=== PATIENT | female | born 1960 | race Caucasian/White ===

== ENCOUNTER 2018-05-26 09:03 | Emergency (ER) | payer SELFPAY ==
[2018-05-26] MEDS ORDERED: NA CHLORIDE 0.9% 1,000 ML ONE (10:00)
[2018-05-26] MEDS ORDERED: METHYLPREDNISOLONE 125 MG INJ ONE (10:00)
[2018-05-26] MEDS ORDERED: LEVALBUTEROL 1.25 MG/3 ML NEB ONE (10:00)
[2018-05-26 10:08] LABS: Absolute Lymphocytes (CBC) 2.4 K/uL (0.7-4.9); Absolute Monocytes 1.1 K/uL (0.1-1.3); Absolute Neutrophil 9.2 K/uL (1.8-8.0); Basophils % 0.5 % (0-1.3); Eosinophils % 0.2 % (0-4.4); Hematocrit 46.9 % (36.0-45.0); Lymphocytes % 18.9 % (15.3-44.8); MPV 8.5 fL (7.6-11.3); Monocytes % 8.3 % (3.3-12.3); RBC Red Blood Cell Count 5.12 M/uL (3.86-4.86)
--- NOTE | 2018-05-26 10:21 | RAD REPORT ---
EXAM DESCRIPTION: RAD - Chest Single View - 05/26/2018 9:56 am CLINICAL HISTORY: Cough;Dyspnea Chest pain. COMPARISON: No comparisons FINDINGS: Portable technique limits examination quality. The lungs are emphysematous but grossly clear. The heart is normal in size. No displaced fractures. IMPRESSION: No acute intrathoracic process suspected. Mild COPD.
[2018-05-26 10:37] LABS: BUN Blood Urea Nitrogen 12 mg/dL (7-18); Bicarbonate 25 mmol/L (21-32); Glucose Level 123 mg/dL (74-106); Potassium 3.3 mmol/L (3.5-5.1); Sodium Level 138 mmol/L (136-145); Troponin (Emerg Dept Use Only) < 0.02 ng/mL (0.0-0.045)
[2018-05-26] MEDS ORDERED: POTASSIUM CL SA 10 MEQ TAB PO ONE (10:54)
[2018-05-26] MEDS ORDERED: ACETAMINOPHEN 500 MG TAB ONE (10:54)
[2018-05-26] MEDS ORDERED: MEPERIDINE HCL 25 MG/0.5 ML ONE (11:44)
[2018-05-26 12:02] LABS: Urine Amorphous Sediment TRACE /HPF (NONE SEEN); Urine Bacteria 20-50 /HPF (<20); Urine Culture Reflex Order REFLEXED; Urine Mucus 4+ /HPF (NONE SEEN)
[2018-05-26 12:06] LABS: Urine Blood 2+ (NEG); Urine Glucose NEGATIVE (NEG); Urine Protein 1+ (NEG); Urine pH 5.5 (5.0-7.0)
--- NOTE | 2018-05-26 12:06 | RAD REPORT ---
EXAM DESCRIPTION: CT - Chest For Pe Angio - 05/26/2018 11:35 am CLINICAL HISTORY: Chest pain. CHEST PAIN COMPARISON: No comparisons TECHNIQUE: CT angiogram of the pulmonary arteries was performed with MIP. All CT scans are performed using dose optimization technique as appropriate and may include automated exposure control or mA/KV adjustment according to patient size. FINDINGS: No evidence of pulmonary thromboembolism. No acute aortic finding demonstrated. The lungs appear mildly emphysematous with areas of ground-glass opacity present bilaterally. This li don represents areas of alveolitis. No focal consolidation typical of bacterial pneumonia is seen. No significant pericardial or pleural fluid. Mild soft tissue is seen in the mediastinum and both hil ar regions compatible with mild adenopathy, likely reactive. No concerning bony finding. IMPRESSION: No evidence of pulmonary thromboembolism. Areas of ground-glass opacity in both lungs likely represents alveolitis. Mildly reactive lymphadenopathy suspected in the mediastinum and hilar regions.
--- NOTE | 2018-05-26 12:54 | ER ---
Nurse's Notes [facility] Name: Joelle Nielsen Age: 57 yrs Sex: Female : 1960 Arrival Date: 05/26/2018 Time: 09:07 Bed 5 Private MD: Diagnosis: Alveolitis;Pneumonia Presentation: 05/26 09:29 Presenting complaint: Patient states: SOB, productive cough with greenish/yellowish aa5 sputum x 3 days ago. Pt also reports N/V/D x 2-3 days ago. Transition of care: patient was not received from another setting of care. Onset of symptoms was May 2018. Risk Assessment: Do you want to hurt yourself or someone else? Patient reports no desire to harm self or others. Care prior to arrival: None. 09:29 Method Of Arrival: Ambulatory aa5 09:29 Acuity: YOAV 2 aa5 09:29 Initial Sepsis Screen: Does the patient meet any 2 criteria? HR > 90 bpm. Does the aa5 patient have a suspected source of infection? Yes: Productive cough/pneumonia. Triage Assessment: 11:00 General: Appears in no apparent distress. Behavior is calm, cooperative. Pain: iw Complains of pain in chest. Respiratory: Reports shortness of breath on exertion Onset: The symptoms/episode began/occurred yesterday, the patient has moderate shortness of breath. 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 - Social history:: Smoking status: Patient uses tobacco products, Pt states "I quit smoking a little over a week" . - Ebola Screening: : No symptoms or risks identified at this time. - Family history:: not pertinent. - Hospitalizations: : No recent hospitalization is reported. Screenin:28 Abuse screen: Denies threats or abuse. Denies injuries from another. Nutritional iw screening: No deficits noted. Tuberculosis screening: No symptoms or risk factors identified. Fall Risk IV access (20 points). Assessment: 10:27 Reassessment: Patient appears in no apparent distress at this time. Patient and/or iw family updated on plan of care and expected duration. Pain level reassessed. Patient is alert, oriented x 3, equal unlabored respirations, skin warm/dry/pink. pt c/o headache after breathing treatment. 10:30 Cardiovascular: Rhythm is sinus tachycardia. iw 11:23 Reassessment: Patient appears in no apparent distress at this time. Patient and/or iw family updated on plan of care and expected duration. Pain level reassessed. pt still tachycardiac at 115 bpm, still complain of diffuse chest pain throughout, increases with inspiration, mild SOB noted, mildly tachypneic at 22 breaths per minute. 12:58 Cardiovascular: No deficits noted. Respiratory: Airway is patent Respiratory effort is iw even, unlabored, Breath sounds are clear bilaterally. Vital Signs: 09:31 BP 156 / 98; Pulse 122; Resp 20; Temp 100.4(O); Pulse Ox 96% on R/A; Weight 47.63 kg aa5 (R); Height 5 ft. 1 in. (154.94 cm) (R); Pain 10/10; 10:23 BP 136 / 79; Pulse 100; Resp 20; Temp 98.4; Pulse Ox 100% on R/A; iw 11:10 BP 135 / 61; Pulse 112; Resp 22 S; Pulse Ox 100% on R/A; iw 12:56 BP 133 / 78; Pulse 96; Resp 20 S; Pulse Ox 100% on R/A; Pain 4/10; iw 09:31 Body Mass Index 19.84 (47.63 kg, 154.94 cm) aa5 ED Course: 09:07 Patient arrived in ED. as 09:25 Arm band placed on. aa5 09:30 Triage completed. aa5 09:33 Olvin Painting MD is Attending Physician. rn 09:33 Naomi Jhaveri, BRENNA is Primary Nurse. iw 09:45 Initial lab(s) drawn, by in, sent to lab. Inserted saline lock: 20 gauge in right iw antecubital area, using aseptic technique. Blood collected. 09:54 Chest Single View XRAY In Process Unspecified. EDMS 10:21 Patient has correct armband on for positive identification. iw 11:27 CT completed. Patient tolerated procedure well. Patient moved to CT via stretcher. sj Patient moved back from CT. 11:36 CT Chest For PE Angio In Process Unspecified. EDMS 12:23 EKG done, by desktop technician. reviewed by Olvin Painting MD. 3 13:16 No provider procedures requiring assistance completed. IV discontinued, intact, iw bleeding controlled, No redness/swelling at site. Pressure dressing applied. Administered Medications: 10:01 Drug: NS 0.9% 1000 ml Route: IV; Rate: 1000 ml; Site: right antecubital; iw 10:01 Drug: Xopenex (3) 1.25 mg Route: Inhalation; iw 10:01 Drug: SOLU-Medrol 125 mg Route: IVP; Site: right antecubital; iw 11:16 Follow up: Response: No adverse reaction iw 10:49 Drug: Tylenol 500 mg Route: PO; sg 13:15 Follow up: Response: No adverse reaction iw 10:49 Drug: Potassium Chloride 40 mEq Route: PO; sg 12:00 Follow up: Response: No adverse reaction iw 11:45 Drug: Demerol 25 mg Route: IVP; Site: right antecubital; iw 13:14 Follow up: Response: No adverse reaction; Pain is decreased iw 13:14 Drug: LevaQUIN 500 mg Route: PO; iw Outcome: 12:53 Discharge ordered by . rn 13:17 Discharged to home via wheelchair. iw 13:17 Condition: good 13:17 Discharge instructions given to patient, Instructed on discharge instructions, follow up and referral plans. medication usage, Demonstrated understanding of instructions, follow-up care, medications, Prescriptions given X 3. 13:23 Patient left the ED. iw Signatures: Dispatcher [employer] EDMS Kota Velez RN RN sg Jones, Susan sj Martinez, Amelia as Williams, Irene, RN RN iw Olivn Painting MD MD rn Calderon, Audri, RN RN aa5 Sheeba Godinez 3 Corrections: (The following items were deleted from the chart) 09:32 09:29 Acuity: YOAV 3 aa5 aa5 10:26 10:23 BP 136 / 79; Pulse 100bpm; Resp 20bpm; Pulse Ox 100% RA; iw iw
--- NOTE | 2018-05-26 12:54 | EDPHYS ---
Physician Documentation [facility] Name: Joelle Nielsen Age: 57 yrs Sex: Female : 1960 Arrival Date: 05/26/2018 Time: 09:07 Bed 5 Private MD: ED Physician Olvin Painting HPI: 05/26 10:44 This 57 yrs old Female presents to ER via Ambulatory with complaints of rn Shortness Of Breath, Cough, Headache. 10:44 The patient has shortness of breath at rest. rn 10:44 Onset: The symptoms/episode began/occurred 3 day(s) ago. Duration: The symptoms are rn intermittent. The patient's shortness of breath is aggravated by nothing. Severity of symptoms: At their worst the symptoms were mild in the emergency department the symptoms are unchanged. The patient has not experienced similar symptoms in the past. The patient has not recently seen a physician. Reports 3-4 days of cough, congestion, post-tussive emesis, generalized weakness and poor PO intake, + decades of smoking, quit last week. . 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 - Social history:: Smoking status: Patient uses tobacco products, Pt states "I quit smoking a little over a week" . - Ebola Screening: : No symptoms or risks identified at this time. - Family history:: not pertinent. - Hospitalizations: : No recent hospitalization is reported. ROS: 10:44 Constitutional: Negative for fever, chills, and weight loss, Eyes: Negative for injury, rn pain, redness, and discharge, ENT: Negative for injury, pain, and discharge, Neck: Negative for injury, pain, and swelling, Cardiovascular: Negative for chest pain, palpitations, and edema, Respiratory: + cough and sob Abdomen/GI: Negative for abdominal pain, constipation, MS/Extremity: Negative for injury and deformity, Skin: Negative for injury, rash, and discoloration, Neuro: Negative for headache, numbness, tingling, and seizure. Exam: 10:44 Constitutional: This is a well developed, well nourished patient who is awake, alert, rn and in no acute distress. Head/Face: Normocephalic, atraumatic. Eyes: Pupils equal round and reactive to light, extra-ocular motions intact. Lids and lashes normal. Conjunctiva and sclera are non-icteric and not injected. Cornea within normal limits. Periorbital areas with no swelling, redness, or edema. ENT: dry MM, no stridor Cardiovascular: Regular rate and rhythm with a normal S1 and S2. No gallops, murmurs, or rubs. Normal PMI, no JVD. No pulse deficits. Respiratory: + mild tachypnea with faint bilateral exp wheezing, no retractions Abdomen/GI: soft, non-tender MS/ Extremity: Pulses equal, no cyanosis. Neurovascular intact. Full, normal range of motion. Equal circumference. Neuro: Awake and alert, GCS 15, oriented to person, place, time, and situation. Cranial nerves II-XII grossly intact. Motor strength 5/5 in all extremities. Sensory grossly intact. Cerebellar exam normal. Normal gait. Vital Signs: 09:31 BP 156 / 98; Pulse 122; Resp 20; Temp 100.4(O); Pulse Ox 96% on R/A; Weight 47.63 kg aa5 (R); Height 5 ft. 1 in. (154.94 cm) (R); Pain 10/10; 10:23 BP 136 / 79; Pulse 100; Resp 20; Temp 98.4; Pulse Ox 100% on R/A; iw 11:10 BP 135 / 61; Pulse 112; Resp 22 S; Pulse Ox 100% on R/A; iw 12:56 BP 133 / 78; Pulse 96; Resp 20 S; Pulse Ox 100% on R/A; Pain 4/10; iw 09:31 Body Mass Index 19.84 (47.63 kg, 154.94 cm) aa5 MDM: 09:33 Patient medically screened. rn 12:52 Differential diagnosis: Bronchitis Chronic Obstructive Pulmonary Disease Myocardial rn Infarction pneumonia, Pneumothorax pulmonary edema, Pulmonary Embolism. Data reviewed: vital signs, nurses notes, lab test result(s), EKG, radiologic studies, CT scan, plain films, and as a result, I will discharge patient. Counseling: I had a detailed discussion with the patient and/or guardian regarding: the historical points, exam findings, and any diagnostic results supporting the discharge/admit diagnosis, lab results, radiology results, the need for outpatient follow up, to return to the emergency department if symptoms worsen or persist or if there are any questions or concerns that arise at home. Response to treatment: the patient's symptoms have markedly improved after treatment. Special discussion: I discussed with the patient/guardian in detail that at this point there is no indication for admission to the hospital. It is understood, however, that if the symptoms persist or worsen the patient needs to return immediately for re-evaluation. 05/26 09:38 Order name: Basic Metabolic Panel rn 05/26 09:38 Order name: Blood Culture Adult (2) rn 05/26 09:38 Order name: CBC with Diff; Complete Time: 10:26 rn 05/26 09:38 Order name: Procalcitonin; Complete Time: 11:17 rn 05/26 09:38 Order name: Troponin (emerg Dept Use Only); Complete Time: 10:43 rn 05/26 09:38 Order name: Urine Microscopic Only; Complete Time: 12:21 rn 05/26 09:38 Order name: Chest Single View XRAY; Complete Time: 10:26 rn 05/26 09:38 Order name: Flu; Complete Time: 10:43 rn 05/26 09:38 Order name: Strep; Complete Time: 10:26 rn 05/26 09:38 Order name: Basic Metabolic Panel; Complete Time: 10:43 [facility] 05/26 10:25 Order name: Throat Culture [facility] 05/26 11:05 Order name: Urine Dipstick--Ancillary (enter results); Complete Time: 12:21 05/26 11:17 Order name: CT Chest For PE Angio; Complete Time: 12:21 rn 05/26 12:04 Order name: Urine Culture [facility] 05/26 09:38 Order name: Accucheck; Complete Time: 11:11 rn 05/26 09:38 Order name: Cardiac monitoring; Complete Time: 10:02 rn 05/26 09:38 Order name: EKG - Nurse/Tech; Complete Time: 11:13 rn 05/26 09:38 Order name: IV Saline Lock - Large Bore; Complete Time: 10:22 rn 05/26 09:38 Order name: Labs collected and sent; Complete Time: 10:22 rn 05/26 09:38 Order name: O2 Per Protocol; Complete Time: 10:22 rn 05/26 09:38 Order name: O2 Sat Monitoring; Complete Time: 10:22 rn 05/26 09:38 Order name: Urine Dipstick-Ancillary (obtain specimen); Complete Time: 11:12 rn Administered Medications: 10:01 Drug: NS 0.9% 1000 ml Route: IV; Rate: 1000 ml; Site: right antecubital; iw 10:01 Drug: Xopenex (3) 1.25 mg Route: Inhalation; iw 10:01 Drug: SOLU-Medrol 125 mg Route: IVP; Site: right antecubital; iw 11:16 Follow up: Response: No adverse reaction iw 10:49 Drug: Tylenol 500 mg Route: PO; sg 13:15 Follow up: Response: No adverse reaction iw 10:49 Drug: Potassium Chloride 40 mEq Route: PO; sg 12:00 Follow up: Response: No adverse reaction iw 11:45 Drug: Demerol 25 mg Route: IVP; Site: right antecubital; iw 13:14 Follow up: Response: No adverse reaction; Pain is decreased iw 13:14 Drug: LevaQUIN 500 mg Route: PO; iw Disposition: 05/26/18 12:53 Discharged to Home. Impression: Alveolitis, Pneumonia. - Condition is Stable. - Discharge Instructions: Community-Acquired Pneumonia, Adult, Pneumonitis. - Prescriptions for Levaquin 500 mg Oral Tablet - take 1 tablet by ORAL route once daily for 7 days; 7 tablet. Prednisone 20 mg Oral Tablet - take 3 tablet by ORAL route once daily for 5 days; 15 tablet. Albuterol Sulfate 90 mcg/actuation - inhale 1-2 puff by INHALATION route every 4-6 hours; 1 Inhaler. - Medication Reconciliation Form, Thank You Letter, Antibiotic Education, Prescription Opioid Use form. - Follow up: Private Physician; When: As needed; Reason: Recheck today's complaints, Re-evaluation by your physician. - Problem is new. - Symptoms have improved. Signatures: Dispatcher [employer] EDMS Kota Velez RN BRENNA sg Naomi Jhaveri RN RN iw Olvin Painting MD MD rn Calderon, Audri RN RN aa5 Corrections: (The following items were deleted from the chart) 13:23 12:53 05/26/2018 12:53 Discharged to Home. Impression: Alveolitis; Pneumonia. Condition iw is Stable. Forms are Medication Reconciliation Form, Thank You Letter, Antibiotic Education, Prescription Opioid Use. Follow up: Private Physician; When: As needed; Reason: Recheck today's complaints, Re-evaluation by your physician. Problem is new. Symptoms have improved. rn
[2018-05-26] MEDS ORDERED: levoFLOXacin 500 MG TAB ONE (13:17)
--- NOTE | 2018-05-26 16:03 | EKG ---
Test Date: 2018-05-26 Test Time: 11:14:09 Nutritionist Public Health: SARAH MEASUREMENT RESULTS: Intervals: Rate: 99 MT: 144 QRSD: 70 QT: 354 QTc: 454 [place]: P: 79 MT: 144 QRS: 53 T: 63 INTERPRETIVE STATEMENTS: Normal sinus rhythm Normal ECG No previous ECG available for comparison Electronically Signed On 05-26-18 16:02:55 MATCH MAKER by Fan Veliz
== END 2018-05-26 13:23 | disposition home or self-care (01) ==
LOC: ER 09:03
DX: J18.9 Pneumonia, unspecified organism (principal); Z72.0 Tobacco use
CPT/HCPCS: 36415; 71045; 71275; 80048; 81003; 81015; 84145; 84484; 85025; 87040; 87070; 87081; 87086; 87088; 87804; 93005; 96374; 96375; 99285; J2175; J2930; J7030; Q9967

== ENCOUNTER 2018-12-11 11:09 | Emergency (ER) | payer OTHER, SELFPAY ==
[2018-12-11] MEDS ORDERED: DIAZEPAM 5 MG TABLET ONE (12:04)
[2018-12-11] MEDS ORDERED: MECLIZINE HCL 12.5 MG TAB ONE (12:04)
[2018-12-11 12:12] LABS: Protime INR 1.04
[2018-12-11 12:15] LABS: Absolute Lymphocytes (CBC) 3.5 K/uL (0.7-4.9); Basophils % 0.7 % (0-1.3); Hematocrit 36.2 % (36.0-45.0); Lymphocytes % 47.8 % (15.3-44.8); MPV 8.4 fL (7.6-11.3); RBC Red Blood Cell Count 3.91 M/uL (3.86-4.86)
[2018-12-11 12:33] LABS: Blood Morphology Comment NOT SEEN (NOT SEEN); Platelet Estimate ADEQ
[2018-12-11 12:36] LABS: BUN Blood Urea Nitrogen 16 mg/dL (7-18); Bicarbonate 29 mmol/L (21-32); Glucose Level 89 mg/dL (74-106); Potassium 3.6 mmol/L (3.5-5.1); Sodium Level 142 mmol/L (136-145)
--- NOTE | 2018-12-11 12:44 | RAD REPORT ---
EXAM DESCRIPTION: CT - Head Brain Wo Cont - 12/11/2018 12:22 pm CLINICAL HISTORY: Dizziness COMPARISON: None TECHNIQUE: Computed axial tomography of the head was obtained. IV contrast was not requested. All CT scans are performed using dose optimization technique as appropriate and may include automated exposure control or mA/KV adjustment according to patient size. FINDINGS: 2 millimeter area of increased density left basal ganglia. The ventricles are normal in caliber. No extra-axial fluid collection is noted. Fluid within the sinuses/ mastoids is not seen. IMPRESSION: A 2 millimeter area of increased density within the left basal ganglia most likely repre senting early calcification. A bleed can have this appearance but is considered less likely. If clini shyanne indicated further evaluation with MRI may be helpful The exam was discussed with Vance in the Emergency Room 12:40 p.m. December 11, 2018
--- NOTE | 2018-12-11 14:55 | RAD REPORT ---
EXAM DESCRIPTION: MRI - Brain Wo Cont - 12/11/2018 2:36 pm CLINICAL HISTORY: Dizziness, syncope, stroke-like symptoms, abnormal CT head examination COMPARISON: CT head December 11 TECHNIQUE: Sagittal T1-weighted images were obtained along with axial PD, heavily T2-weighted and T2 -FLAIR images. Axial DWI and ADC mapping sequences were also obtained along with coronal heavily T2-w eighted images. FINDINGS: No intracranial hemorrhage is present. No mass effect, edema or shift of midline structure s. No acute infarction changes are identifiable. The areas of hyperdensity seen on the CT study in th e left basal ganglia do not have a correlate on the MR examination and are believed to be areas of ea rly but benign basal ganglia calcification. A few small punctate areas of T2 hyperintensity noted mos t likely chronic ischemic change. Vasculitis or migraine headache etiologies are possible if there is a matching clinical history. MS or other demyelinating process not suspected. No extra-axial fluid c ollections. Vazquez-matter/white matter junction is preserved. Signal voids are seen as a normal finding in the major intracranial vessels. Ventricles are normal. No measurable atrophy. No globe or orbital content abnormality. No sella or supra sella abnormality. Mastoid air cells and paranasal sinuses are clear. IMPRESSION: No infarction or other acute intracranial finding. No intracranial hemorrhage suspected. The areas of hyperintensity seen in the left basal ganglia on the CT study believed to be areas of de veloping benign basal ganglia calcification. Scattered T2 hyperintensities in the cerebral white matter believed to be chronic ischemic change. Th is is a minimal finding. Migraine headache or vasculitis etiologies are possible if there supporting history.
--- NOTE | 2018-12-11 15:16 | EDPHYS ---
Physician Documentation [facility] Name: Joelle Nielsen Age: 58 yrs Sex: Female : 1960 Arrival Date: 12/11/2018 Time: 11:12 Bed 14 Private MD: ED Physician Liam Rosen HPI: 12/11 11:40 This 58 yrs old Female presents to ER via Ambulatory with complaints of kdr Dizziness. 11:40 The patient presents with dizziness, feeling off balance, sense of spinning, vertigo. kdr Onset: The symptoms/episode began/occurred acutely, suddenly, just prior to arrival, this morning, When she awoke this morning and reached to the side table, she noted she was dizzy. Context: occurred at home, occurred while the patient was asleep, at rest, just prior to the episode the patient experienced no apparent symptoms. Modifying factors: The symptoms are alleviated by holding head still, the symptoms are aggravated by movement of head, standing up, changing position. Associated signs and symptoms: Pertinent positives: headache, nausea, Pertinent negatives: abdominal pain, agitation, blurred vision, chest pain, combativeness, confusion, diaphoresis, focal weakness, head injury, near-syncope, numbness, palpitations, , seizure, shortness of breath, syncope, tingling. Historical: - Allergies: 11:14 Codeine; hj - PMHx: 11:14 None; hj - PSHx: 11:14 right shoulder with screws; hj - Immunization history:: Adult Immunizations up to date. - Social history:: Smoking status: Patient/guardian denies using tobacco. - Ebola Screening: : Patient negative for fever greater than or equal to 101.5 degrees Fahrenheit, and additional compatible Ebola Virus Disease symptoms Patient denies exposure to infectious person Patient denies travel to an Ebola-affected area in the 21 days before illness onset No symptoms or risks identified at this time. ROS: 11:40 Constitutional: Negative for fever, chills, and weight loss, Eyes: Negative for injury, kdr pain, redness, and discharge, Neck: Negative for injury, pain, and swelling, Cardiovascular: Negative for chest pain, palpitations, and edema, Respiratory: Negative for shortness of breath, cough, wheezing, and pleuritic chest pain, Abdomen/GI: Negative for abdominal pain, nausea, vomiting, diarrhea, and constipation, Back: Negative for injury and pain, : Negative for injury, bleeding, discharge, and swelling, MS/Extremity: Negative for injury and deformity, Skin: Negative for injury, rash, and discoloration, Psych: Negative for depression, anxiety, suicide ideation, homicidal ideation, and hallucinations, Allergy/Immunology: Negative for hives, rash, and allergies, Endocrine: Negative for neck swelling, polydipsia, polyuria, polyphagia, and marked weight changes, Hematologic/Lymphatic: Negative for swollen nodes, abnormal bleeding, and unusual bruising. 11:40 Neuro: Positive for dizziness, Negative for altered mental status, gait disturbance, headache, hearing loss, loss of consciousness, numbness, seizure activity, speech changes, syncope, near syncope, tingling, tinnitus, tremor, visual changes, weakness. Exam: 11:40 Constitutional: This is a well developed, well nourished patient who is awake, alert, kdr and in no acute distress. Head/Face: Normocephalic, atraumatic. Eyes: Pupils equal round and reactive to light, extra-ocular motions intact. Lids and lashes normal. Conjunctiva and sclera are non-icteric and not injected. Cornea within normal limits. Periorbital areas with no swelling, redness, or edema. Neck: Trachea midline, no thyromegaly or masses palpated, and no cervical lymphadenopathy. Supple, full range of motion without nuchal rigidity, or vertebral point tenderness. No Meningismus. Chest/axilla: Normal chest wall appearance and motion. Nontender with no deformity. No lesions are appreciated. Cardiovascular: Regular rate and rhythm with a normal S1 and S2. No gallops, murmurs, or rubs. Normal PMI, no JVD. No pulse deficits. Respiratory: Lungs have equal breath sounds bilaterally, clear to auscultation and percussion. No rales, rhonchi or wheezes noted. No increased work of breathing, no retractions or nasal flaring. Abdomen/GI: Soft, non-tender, with normal bowel sounds. No distension or tympany. No guarding or rebound. No evidence of tenderness throughout. Back: No spinal tenderness. No costovertebral tenderness. Full range of motion. Skin: Warm, dry with normal turgor. Normal color with no rashes, no lesions, and no evidence of cellulitis. MS/ Extremity: Pulses equal, no cyanosis. Neurovascular intact. Full, normal range of motion. Neuro: Awake and alert, GCS 15, oriented to person, place, time, and situation. Cranial nerves II-XII grossly intact. Motor strength 5/5 in all extremities. Sensory grossly intact. Cerebellar exam normal. Normal gait. Psych: Awake, alert, with orientation to person, place and time. Behavior, mood, and affect are within normal limits. Vital Signs: 11:15 BP 145 / 83; Pulse 71; Resp 18; Temp 98.4(TE); Pulse Ox 98% on R/A; Weight 52.16 kg; hj Height 5 ft. 1 in. (154.94 cm); Pain 0/10; 12:48 BP 131 / 81; Pulse 67; Resp 17; Pulse Ox 97% on R/A; aj 14:02 BP 120 / 76; Pulse 82; Resp 17; Pulse Ox 100% on R/A; aj 14:47 BP 139 / 85; Pulse 74; Resp 16; Pulse Ox 100% on R/A; aj 15:03 BP 141 / 76; Pulse 70; Resp 18; Pulse Ox 99% on R/A; aj 11:15 Body Mass Index 21.73 (52.16 kg, 154.94 cm) hj MDM: 11:40 Data reviewed: vital signs, nurses notes, lab test result(s), radiologic studies. kdr Counseling: I had a detailed discussion with the patient and/or guardian regarding: the historical points, exam findings, and any diagnostic results supporting the discharge/admit diagnosis, lab results, radiology results. 15:15 Patient medically screened. [facility] 12/11 11:40 Order name: CBC with Diff; Complete Time: 13:07 [facility] 12/11 11:40 Order name: Chem 7; Complete Time: 13: [facility] 12/11 11:40 Order name: PT-INR; Complete Time: 13:07 [facility] 12/11 11:40 Order name: CT Head Brain wo Cont; Complete Time: 13:07 [facility] 12/11 12:35 Order name: Manual Differential; Complete Time: 13:07 [facility] 12/11 13:08 Order name: MRI - Brain Wo Cont; Complete Time: 15:06 kdr Administered Medications: 11:49 Drug: Valium 5 mg Route: PO; aj 14:47 Follow up: Response: Marked relief of symptoms aj 11:49 Drug: Meclizine 25 mg Route: PO; aj 14:47 Follow up: Response: Marked relief of symptoms aj Disposition: 12/11/18 15:15 Discharged to Home. Impression: Dizziness and giddiness, Vertigo of central origin, unspecified ear. - Condition is Stable. - Discharge Instructions: Vertigo, Mgdd-dz-Sled, Dizziness, Mrwl-wr-Answ. - Prescriptions for Meclizine 25 mg Oral Tablet - take 1 tablet by ORAL route every 8 hours As needed; 30 tablet. - Work release form, Medication Reconciliation Form, Thank You Letter form. - Follow up: Private Physician; When: 2 - 3 days; Reason: If symptoms return, Further diagnostic work-up, Recheck today's complaints, Continuance of care, Re-evaluation by your physician. Follow up: Marco A Reveles MD; When: 2 - 3 days; Reason: If symptoms return, Further diagnostic work-up, Recheck today's complaints, Continuance of care, Re-evaluation by your physician. - Problem is new. - Symptoms have improved. Signatures: Dispatcher [employer] EDMS Miranda Briceño RN RN Liam Allison MD MD [facility] Myron Padgett RN RN Corrections: (The following items were deleted from the chart) 15:25 15:15 12/11/2018 15:15 Discharged to Home. Impression: Dizziness and giddiness; Vertigo aj of central origin, unspecified ear. Condition is Stable. Forms are Medication Reconciliation Form, Thank You Letter, Antibiotic Education, Prescription Opioid Use. Follow up: Private Physician; When: 2 - 3 days; Reason: If symptoms return, Further diagnostic work-up, Recheck today's complaints, Continuance of care, Re-evaluation by your physician. Follow up: Marco A Reveles; When: 2 - 3 days; Reason: If symptoms return, Further diagnostic work-up, Recheck today's complaints, Continuance of care, Re-evaluation by your physician. Problem is new. Symptoms have improved. kdr
--- NOTE | 2018-12-11 15:16 | ER ---
Nurse's Notes [facility] Name: Joelle Nielsen Age: 58 yrs Sex: Female : 1960 Arrival Date: 12/11/2018 Time: 11:12 Bed 14 Private MD: Diagnosis: Dizziness and giddiness;Vertigo of central origin, unspecified ear Presentation: 12/11 11:13 Presenting complaint: Patient states: i have been dizzy since i woke up, feels like the room is spinning; denies headache, denies N/V;. Transition of care: patient was not received from another setting of care. Onset of symptoms was December 11, 2018. Risk Assessment: Do you want to hurt yourself or someone else? Patient reports no desire to harm self or others. Initial Sepsis Screen: Does the patient meet any 2 criteria? No. Patient's initial sepsis screen is negative. Does the patient have a suspected source of infection? No. Patient's initial sepsis screen is negative. Care prior to arrival: None. 11:13 Method Of Arrival: Ambulatory 11:13 Acuity: YOAV 3 Triage Assessment: 11:15 General: Appears. Historical: - Allergies: 11:14 Codeine; - PMHx: 11:14 None; - PSHx: 11:14 right shoulder with screws; - Immunization history:: Adult Immunizations up to date. - Social history:: Smoking status: Patient/guardian denies using tobacco. - Ebola Screening: : Patient negative for fever greater than or equal to 101.5 degrees Fahrenheit, and additional compatible Ebola Virus Disease symptoms Patient denies exposure to infectious person Patient denies travel to an Ebola-affected area in the 21 days before illness onset No symptoms or risks identified at this time. Screenin:49 Abuse screen: Denies threats or abuse. Denies injuries from another. Nutritional aj screening: No deficits noted. Tuberculosis screening: No symptoms or risk factors identified. Fall Risk None identified. Assessment: 11:49 General: Appears in no apparent distress. comfortable, Behavior is calm, cooperative, aj appropriate for age. Pain: Denies pain. Neuro: Level of Consciousness is awake, alert, obeys commands, Oriented to person, place, time, situation, Appropriate for age Stuffed Casing Tier are equal bilaterally Moves all extremities. Full function Gait is steady, Speech is normal, Facial symmetry appears normal, Pupils are PERRLA, Reports dizziness. Respiratory: Airway is patent Respiratory effort is even, unlabored, Respiratory pattern is regular, symmetrical. Derm: Skin is intact, is healthy with good turgor, Skin is pink, warm \T\ dry. normal. 14:47 Reassessment: Patient appears in no apparent distress at this time. No changes from previously documented assessment. Patient and/or family updated on plan of care and expected duration. Pain level reassessed. Patient is alert, oriented x 3, equal unlabored respirations, skin warm/dry/pink. Patient denies pain at this time. Patient states feeling better. Patient states symptoms have improved. Vital Signs: 11:15 BP 145 / 83; Pulse 71; Resp 18; Temp 98.4(TE); Pulse Ox 98% on R/A; Weight 52.16 kg; hj Height 5 ft. 1 in. (154.94 cm); Pain 0/10; 12:48 BP 131 / 81; Pulse 67; Resp 17; Pulse Ox 97% on R/A; aj 14:02 BP 120 / 76; Pulse 82; Resp 17; Pulse Ox 100% on R/A; aj 14:47 BP 139 / 85; Pulse 74; Resp 16; Pulse Ox 100% on R/A; aj 15:03 BP 141 / 76; Pulse 70; Resp 18; Pulse Ox 99% on R/A; aj 11:15 Body Mass Index 21.73 (52.16 kg, 154.94 cm) ED Course: 11:12 Patient arrived in ED. as 11:14 Triage completed. hj 11:15 Arm band placed on right wrist. hj 11:25 Liam Rosen MD is Attending Physician. kdr 11:42 Miranda Briceño, RN is Primary Nurse. aj 11:49 Patient has correct armband on for positive identification. Bed in low position. Call light in reach. Side rails up X 1. Adult w/ patient. 11:52 Initial lab(s) drawn, by in, sent to lab. Inserted saline lock: 20 gauge in right dh3 antecubital area, using aseptic technique. Blood collected. 12:24 CT Head Brain wo Cont In Process Unspecified. EDMS 14:38 MRI - Brain Wo Cont In Process Unspecified. EDMS 15:14 Marco A Reveles MD is Referral Physician. kdr 15:24 No provider procedures requiring assistance completed. IV discontinued, intact, aj bleeding controlled, No redness/swelling at site. Pressure dressing applied. Administered Medications: 11:49 Drug: Valium 5 mg Route: PO; aj 14:47 Follow up: Response: Marked relief of symptoms aj 11:49 Drug: Meclizine 25 mg Route: PO; aj 14:47 Follow up: Response: Marked relief of symptoms aj Outcome: 15:15 Discharge ordered by . kdr 15:24 Discharged to home ambulatory. aj 15:24 Condition: good 15:24 Discharge instructions given to patient, Instructed on discharge instructions, follow up and referral plans. Demonstrated understanding of instructions, follow-up care, medications, Prescriptions given X 1. 15:25 Patient left the ED. aj Signatures: Dispatcher [employer] EDMiranda Marquez, RN RN Liam Allison MD MD kdr Martinez, Amelia as Joaquin, Henry, RN RN Ivonne Penn [facility] Corrections: (The following items were deleted from the chart) 11:16 11:15 Pulse 71bpm; Resp 18bpm; Pulse Ox 98% RA; Temp 98.4F Temporal; 52.16 kg; Height 5 hj ft. 1 in.; BMI: 21.7; Pain 0/10; hj
== END 2018-12-11 15:25 | disposition home or self-care (01) ==
LOC: ER 11:09
DX: H81.49 Vertigo of central origin, unspecified ear (principal); Z88.5 Allergy status to narcotic agent
CPT/HCPCS: 36415; 70450; 70551; 80048; 85025; 85610; 99284

== ENCOUNTER 2019-03-16 07:09 | Day surgery (SDC) | payer OTHER ==
[2019-03-16] MEDS ORDERED: Ringers Lactate 1,000 ML IV ONE (07:39)
[2019-03-16] MEDS ORDERED: LIDOCAINE 1% MPF 5 ML VIAL ONE (08:23)
[2019-03-16] MEDS ORDERED: PROPOFOL 200 MG/20 ML VIAL IV ONE (08:23)
--- NOTE | 2019-03-16 08:48 | ENDO RPT ---
[address], [address] COLONOSCOPY PROCEDURE REPORT EXAM DATE: 03/16/2019 PATIENT NAME: Joelle Nielsen MR #: [id number] BIRTHDATE: 1960 ATTENDING: Myron Falk MD STATUS: outpatient PROFESSOR OF SPECIAL EDUCATION: Cathy Sanchez and Ronit Deras RN INDICATIONS: The patient is a 58 yr old Female here for a colonoscopy due to colon cancer screening PROCEDURE PERFORMED: Colonoscopy MEDICATIONS: Per Anesthesia. ESTIMATED BLOOD LOSS: None CONSENT: The patient understands the risks and benefits of the procedure and understands that these risks include, but are not limited to: sedation, allergic reaction, infection, perforation and/or bleeding. Alternative means of evaluation and treatment include, among others: physical exam, x-rays, and/or surgical intervention. The patient elects to proceed with this endoscopic procedure. DESCRIPTION OF PROCEDURE: During intra-op preparation period all mechanical medical equipment was checked for proper function. Hand hygiene and appropriate measures for infection prevention was taken. Procedure, possible complications, alternatives including, but not limited to possibility of bleeding, perforation, tear, infection, sepsis, need for surgery, need for blood transfusion, were explained to the patient. After the risks, benefits and alternatives of the procedure were thoroughly explained, Informed consent was verified, confirmed and timeout was successfully executed by the treatment team. The patient was placed in the left lateral position. A digital rectal exam was performed and revealed external hemorrhoids. After appropriate level of anesthesia, the scope was passed. The EC-[id number] ([id number]) endoscope was introduced through the anus and advanced to the cecum, which was identified by transillumination from the light source, the appendix, and the ileocecal valve. The quality of the prep was good. The instrument was then slowly withdrawn as the colon was fully examined. Scope withdrawal time was . COLON FINDINGS: Internal and external hemorrhoids were found. Retroflexed views revealed no abnormalities. The scope was then completely withdrawn from the patient and the procedure terminated. ADVERSE EVENTS: There were no complications. IMPRESSIONS: Internal and external hemorrhoids RECOMMENDATIONS: 1. follow-up: office 1 week(s) 2. fiber rich diet 3. hemorrhoidal hygiene RECALL: Return in 5-10 year(s) for Colonoscopy. Myron Falk MD eSigned: Myron Falk MD 03/16/2019 8:48 AM cc: David Ji MD CPT CODES: ICD9 CODES:
[2019-03-16 09:10] VITALS: BP 115/71; TEMP 97.1; O2SAT 95
== END 2019-03-16 09:27 | disposition home or self-care (01) ==
LOC: OR 07:09
PROVIDERS: ATTEND Surgery
PROC: 0DJD8ZZ Inspection of Lower Intestinal Tract, Via Natural or Artificial Opening Endoscopic (ICD-10-PCS; principal; 2019-03-16 08:30)
DX: Z12.11 Encounter for screening for malignant neoplasm of colon (principal); K64.8 Other hemorrhoids; K64.4 Residual hemorrhoidal skin tags; F17.200 Nicotine dependence, unspecified, uncomplicated; Z88.6 Allergy status to analgesic agent; Z82.49 Family history of ischemic heart disease and other diseases of the circulatory system; Z83.3 Family history of diabetes mellitus
CPT/HCPCS: 45378; J2704; J7120

== ENCOUNTER 2020-05-05 17:14 | Emergency (ER) | payer OTHER ==
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
--- OUTSIDE RECORDS SUMMARY | 2020-05-05 17:18 | XMS REPORT | Continuity of Care Document ---
:1960 Author Organization [facility] t Address [address] [place] [address] Care Team Providers Name Role Phone Unavailable Unavailable Unavailable Problems This patient has no known problems. Allergies, Adverse Reactions, Alerts Allergy Allergy Status Severity Reaction(s) Onset Inactive Treating Comm ents Source Name Type Date Date Clinician codeine Adverse Active Info Not [facility] Medications Ordered Filled Start Stop Current Ordering Indication Dosage Frequency Signature Comments Components Source Medication Medication Date Date Medication? Clinician (SIG) Name Name Barrett Hyde 2020-0 2020- No David [address] [facility]14 [facility] Aspir-Low Aspir-Low Yes David [address] [facility] Vitamin B12 Vitamin B12 Yes David not [facility] defined [facility] ProAir HFA ProAir HFA Yes David [address] [facility] needed [facility] Wellbutrin Wellbutrin Yes David [address] [facility] SR SR Ji [facility] Vitamin D3 Vitamin D3 Yes David not [facility] Ji defined [facility] Immunizations Ordered Filled Immunization Date Status Comments Sourc e Immunization Name Name TDAP > 7 TDAP > 7 2019-02-[address] [facility] 00:00:00 [facility] Procedures This patient has no known procedures. Encounters Start End Encounter Admission Attending Care Care Encounter Source Date/Time Date/Time Type Type Clinicians Facility Department ID 2020-05-02 2020-05-02 Outpatient [facility] [id number] [facility] 2020-05-02 2020-05-02 Out[facility] [id number] [facility] 2020-04-05 2020-04-05 Outpatient [facility] [id number] [facility] 2020-04-04 2020-04-04 Outpatient [facility] [id number] [facility] 2020-03-01 2020-03-01 Outpatient [facility] [id number] [facility] 2020-02-25 2020-02-25 Outpatient [facility] [id number] [facility] 2019-11-30 2019-11-30 [facility] [id number] 15:15:00 15:15:00 [employer] [facility] Medicine l Medicine Outpati ent Clinics 2019-10-23 2019-10-23 [facility] [id number] 09:00:00 09:00:00 t [employer] [facility] Family Medicine l Medicine Outpati ent Clinics 2019-10-22 2019-10-22 [facility] [id number] 10:20:00 10:20:00 [facility] [employer] [facility] Family Medicine l Medicine Outpati ent Clinics 2019-09-28 2019-09-28 [facility] [id number] 15:00:00 15:00:00 t [employer] [facility] Medicine l Medicine Outpati ent Clinics 2019-08-24 2019-08-24 [facility] [id number] 11:31:00 11:31:00 t [employer] s - Drive [facility] Family Medicine l Medicine Outpati ent Clinics 2019-07-29 2019-07-29 [facility] [id number] 15:00:00 15:00:00 t [employer] s - Drive [facility] Medicine l Medicine Outpati ent Clinics 2019-07-20 2019-07-20 [facility] [id number] 11:00:00 11:00:00 t [employer] s - Drive [facility] Family Medicine l Medicine Outpati ent Clinics 2019-07-08 2019-07-08 [facility] [id number] 13:41:00 13:41:00 t [employer] s - Drive [facility] Medicine l Medicine Outpati ent Clinics 2019-07-03 2019-07-03 [facility] [id number] 14:33:00 14:33:00 t [employer] s - Drive [facility] Medicine l Medicine Outpati ent Clinics 2019-06-30 2019-06-30 [facility] [id number] 11[facility]00:00 11:00:00 t [employer] s - [employer] [facility] Medicine l Medicine Outpati ent Clinics 2019-06-02 2019-06-02 [facility] [id number] 08:31:00 08:31:00 t [employer] s - [employer] [facility] Medicine l Medicine Outpati ent Clinics 2019-05-21 2019-05-21 [facility] [id number] 17:11:00 17:11:00 t [employer] s - Drive [facility] Medicine l Medicine Outpati ent Clinics 2019-05-12 2019-05-12 [facility] [id number] 08:01:00 08:01:00 t [employer] s - Drive [facility] Medicine l Medicine Outpati ent Clinics 2019-04-29 2019-04-29 [facility] [id number] 08:15:00 08:15:00 t [employer] [address] [facility] Medicine Outpati ent Clinics 2019-04-24 2019-04-24 [facility] [id number] 08:21:00 08:21:00 t [employer] [facility] Medicine Outpati ent Clinics 2019-04-09 2019-04-09 [facility] [id number] 16:00:00 16:00:00 t [employer] [facility] Medicine Outpati ent Clinics 2019-03-17 2019-03-17 [facility] [id number] 15:00:00 15:00:00 t [employer] [facility] Medicine Outpati ent Clinics 2019-03-10 2019-03-10 [facility] [id number] 08:02:00 08:02:00 t [employer] [facility] Medicine Outpati ent Clinics 2019-02-17 2019-02-17 [facility] [id number] 13:30:00 13:30:00 t [employer] [facility] Medicine Outpati ent Clinics Results This patient has no known results.
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
--- OUTSIDE RECORDS SUMMARY | 2020-05-05 17:18 | XMS REPORT ---
:1960 Author Organization [facility] Address [address], [address] [place] [address] Care Team Providers Name Role Phone Garrison Unavailable [phone] PROBLEMS Type Condition ICD9-CM [id number] Onset Condition SNOMED Code Notes Code Code Dates Status Problem Tobacco use F17.200 Active 119833678 disorder Problem Atherosclerosis of I25.10 Active [id number] [place] coronary artery of red cliff heart, angina presence unspecified Problem Pulmonary J43.9 Active 59187014 emphysema, unspecified emphysema type Problem GERD without K21.9 Active 138660506 esophagitis Problem Primary insomnia F51.01 Active 4023210 Problem Atherosclerotic I70.90 Active 06440496 vascular disease Problem Mixed E78.2 Active 710289085 hyperlipidemia Problem Abnormal mammogram R92.8 Active 156316777 Problem Osteoporosis M81.0 Active 03609843 without current pathological fracture, unspecified osteoporosis type ALLERGIES Allergen (clinical drug Drug/Non Drug Allergy Reaction Allergy Type Onset Date Status ingredient) documented on EMR codeine codeine Unknown Drug Allergy Active ENCOUNTERS from 1960 to 2020-04-05 Encounter Location Date Provider Diagnosis [facility] [address], [place] [address] IMMUNIZATIONS Vaccine Route Administration Date Status Prolia [...] Information RESULTS No Results REASON FOR VISIT Mammogram result MEDICAL (GENERAL) HISTORY Type Description Date Surgical [...] Orally Once a day for 30 day(s) Insurance Providers Payer Name Payer Address Payer Insured Patient Coverage Cover age End Phone Name Relationship to Start Date Deep e Insured [employer] [address] [phone] Morales,Car self [place] [id number] [address] [phone] Tdkv
[2020-05-05 18:33] LABS: Protime INR 1.01
[2020-05-05 18:37] LABS: Absolute Lymphocytes (CBC) 4.1 K/uL (0.7-4.9); Basophils % 0.5 % (0-1.3); Hematocrit 39.3 % (36.0-45.0); Lymphocytes % 22.3 % (15.3-44.8); MPV 8.1 fL (7.6-11.3); RBC Red Blood Cell Count 4.49 M/uL (3.86-4.86)
[2020-05-05 18:53] LABS: ALT/SGPT 30 U/L (12-78); AST/SGOT 15 U/L (15-37); Albumin 3.3 g/dL (3.4-5.0); Alkaline Phosphatase 130 U/L (45-117); BUN Blood Urea Nitrogen 13 mg/dL (7-18); Bicarbonate 33 mmol/L (21-32); Bilirubin Direct < 0.1 mg/dL (0-0.2); Bilirubin Total 0.2 mg/dL (0.2-1.0); Glucose Level 128 mg/dL (74-106); Magnesium 2.2 mg/dL (1.8-2.4); NT PRO-BNP 37 pg/mL (<125); Potassium 3.5 mmol/L (3.5-5.1); Protein, Total 8.1 g/dL (6.4-8.2); Sodium Level 142 mmol/L (136-145); Troponin (Emerg Dept Use Only) < 0.02 ng/mL (0.0-0.045)
--- NOTE | 2020-05-05 19:27 | RAD REPORT ---
EXAM DESCRIPTION: RAD - Chest Single View - 05/05/2020 6:44 pm CLINICAL HISTORY: CHEST PAIN COMPARISON: May 2018 TECHNIQUE: AP portable chest image was obtained 05/05/2020 6:44 pm . FINDINGS: Lung volumes are reduced compared to the prior study accentuating the interstitial pattern . Interstitial edema or infiltrate, mild in degree, are potentially masked. Focal mass or consolidati on. Heart and vasculature are normal. No measurable pleural effusion and no pneumothorax. No acute [place]gie [place] abnormality seen. No acute aortic findings suspected. IMPRESSION: No mass, consolidation or acute cardiopulmonary finding seen. Low lung volumes accentuate the interstitial pattern potentially masking very minimal edema or infilt rate.
[2020-05-05] MEDS ORDERED: dexAMETHasone 10 MG/ML VIAL ONE (19:57)
--- NOTE | 2020-05-05 20:34 | EDPHYS ---
Physician Documentation [facility] Name: Joelle Nielsen Age: 59 yrs Sex: Female : 1960 Arrival Date: 05/05/2020 Time: 17:17 Bed 15 Private MD: Garrison [facility] ED Physician Elpidio Jacobson HPI: 05/05 18:09 This 59 yrs old Female presents to ER via Ambulatory with complaints of jmm Shortness Of Breath, Increased Heart Rate. 18:09 The patient has shortness of breath at rest. Onset: The symptoms/episode began/occurred jmm gradually, 2 week(s) ago. Duration: The symptoms are continuous. The patient's shortness of breath is aggravated by coughing, is alleviated by nothing. Associated signs and symptoms: Pertinent positives: chest pain, Pertinent negatives: fever. This is a 59 year old female with no known chronic medical conditions that presents to the ED with complaints of chest congestion, shortness of breath cough. Patient was evaluated 4 days ago and diagnosed with an URI. Patient is currently on her last day of abx. Patient admits to smoking a pack a day. . Historical: - Allergies: 17:38 Codeine; jl7 - Home Meds: 17:38 None [Active]; jl7 - PMHx: 17:38 None; jl7 - PSHx: 17:38 right shoulder with screws; ; jl7 - Immunization history:: Adult Immunizations not up to date. - Social history:: Smoking status: Patient reports the use of cigarette tobacco products, smokes one-half pack cigarettes per day. ROS: 18:09 ENT: Negative for injury, pain, and discharge, Respiratory: Negative for shortness of jmm breath, cough, wheezing, and pleuritic chest pain. 18:09 Abdomen/GI: Negative for abdominal pain, nausea, vomiting, diarrhea, and constipation. 18:09 Constitutional: Positive for fatigue. 18:09 Cardiovascular: Positive for chest pain, with cough. 18:09 Neuro: Positive for Negative for altered mental status, gait disturbance. 18:09 All other systems are negative. Exam: 18:09 Constitutional: This is a well developed, well nourished patient who is awake, alert, jmm and in no acute distress. Head/Face: atraumatic. Eyes: EOMI, no conjunctival erythema appreciated ENT: Moist Mucus Membranes Neck: Trachea midline, Supple Chest/axilla: Normal chest wall appearance and motion. Cardiovascular: Regular rate and rhythm. No edema appreciated Respiratory: Normal respirations, no respiratory distress appreciated Abdomen/GI: Non distended, soft Skin: General appearance color normal MS/ Extremity: Moves all extremities, no obvious deformities appreciated, no edema noted to the lower extremities Neuro: Awake and alert, normal gait Psych: Behavior is normal, Mood is normal, Patient is cooperative and pleasant Vital Signs: 17:27 BP 149 / 86; Pulse 110; Resp 19; Temp 98.3; Pulse Ox 97% ; Pain 6/10; jl7 20:46 BP 137 / 77; Pulse 91; Resp 18 S; Pulse Ox 95% on R/A; ca1 MDM: 18:20 Patient medically screened. rosie 20:32 Data reviewed: vital signs, nurses notes. Counseling: I had a detailed discussion with katrina the patient and/or guardian regarding: the historical points, exam findings, and any diagnostic results supporting the discharge/admit diagnosis, lab results, radiology results, the need for outpatient follow up. ED course: Patient is alert and non toxic in appearance in the ED. No signs of resp distress. States feeling much better. Advised to finish abx and otherwise given strict return precautions. Patient understood and agrees with the plan of care. . 05/05 18:09 Order name: Basic Metabolic Panel; Complete Time: 19:13 [facility] 05/05 18:09 Order name: CBC with Diff; Complete Time: 18:46 [facility] 05/05 18:09 Order name: LFT's; Complete Time: 19:13 [facility] 05/05 18:09 Order name: Magnesium; Complete Time: 19:13 [facility] 05/05 18:09 Order name: NT PRO-BNP; Complete Time: 19:13 [facility] 05/05 18:09 Order name: PT-INR; Complete Time: 18:46 [facility] 05/05 18:09 Order name: Troponin (emerg Dept Use Only); Complete Time: 19:13 [facility] 05/05 18:09 Order name: XRAY Chest (1 view); Complete Time: 19:31 [facility] 05/05 18:09 Order name: EKG; Complete Time: 18:11 [facility] 05/05 18:09 Order name: Cardiac monitoring; Complete Time: 18:20 [facility] 05/05 18:09 Order name: EKG - Nurse/Tech; Complete Time: 18:20 [facility] 05/05 18:09 Order name: IV Saline Lock; Complete Time: 18:20 [facility] 05/05 18:48 Order name: D-Dimer; Complete Time: 19:13 [facility] 05/05 18:09 Order name: Labs collected and sent; Complete Time: 18:20 [facility] 05/05 18:09 Order name: O2 Per Protocol; Complete Time: 18:20 [facility] 05/05 18:09 Order name: O2 Sat Monitoring; Complete Time: 18:20 [facility] Administered Medications: 19:58 Drug: Decadron - Dexamethasone 10 mg Route: IVP; Site: right antecubital; ll2 Disposition: 05/06 07:44 Co-signature as Attending Physician, Elpidio Jacobson MD I agree with the assessment and rosie plan of care. Disposition: 05/05/20 20:34 Discharged to Home. Impression: Acute bronchitis. - Condition is Stable. - Discharge Instructions: Acute Bronchitis, Adult. - Prescriptions for Prednisone 20 mg Oral Tablet - take 3 tablet by ORAL route once daily for 5 days; 15 tablet. - Medication Reconciliation Form, Thank You Letter, Antibiotic Education, Prescription Opioid Use, Work release form form. - Follow up: David Ji DO; When: 2 - 3 days; Reason: Recheck today's complaints, Continuance of care, Re-evaluation by your physician. Signatures: Dispatcher [employer] Elpidio Garcia MD MD cha Mickail, Joel, PA PA jmm Leal, Jahala, RN RN jl7 Adrienne Glass RN RN ca1 Debora De La Rosa RN RN ll2 Corrections: (The following items were deleted from the chart) 05/05 20:47 20:34 05/05/2020 20:34 Discharged to Home. Impression: Acute bronchitis. Condition is ca1 Stable. Forms are Medication Reconciliation Form, Thank You Letter, Antibiotic Education, Prescription Opioid Use. Follow up: David Ji; When: 2 - 3 days; Reason: Recheck today's complaints, Continuance of care, Re-evaluation by your physician. [facility]
--- NOTE | 2020-05-05 20:34 | ER ---
Nurse's Notes [facility] Name: Joelle Nielsen Age: 59 yrs Sex: Female : 1960 Arrival Date: 05/05/2020 Time: 17:17 Bed 15 Private MD: David Ji Diagnosis: Acute bronchitis Presentation: 05/05 17:27 Chief complaint: Patient states: SOB and chest pressure since 04-29-20, HR was 130 this jl7 afternoon at [facility] so they sent me over here. I have had 2 negative COVID tests, 05-02-20 and 05-05-20. Coronavirus screen: Client denies travel out of the [place] in the last 14 days. shortness of breath, At this time, the client does not indicate any symptoms associated with coronavirus-19. Ebola Screen: No symptoms or risks identified at this time. Initial Sepsis Screen: Does the patient meet any 2 criteria? No. Patient's initial sepsis screen is negative. Does the patient have a suspected source of infection? No. Patient's initial sepsis screen is negative. Risk Assessment: Do you want to hurt yourself or someone else? Patient reports no desire to harm self or others. Onset of symptoms was April 29, 2020. 17:27 Method Of Arrival: Ambulatory [facility] 17:27 Acuity: YOAV 3 jl7 Triage Assessment: 17:38 General: Appears in no apparent distress. uncomfortable, Behavior is calm, cooperative, jl7 appropriate for age. Pain: Complains of pain in mid-sternal area Pain does not radiate. Pain currently is 6 out of 10 on a pain scale. at worst was 8 out of 10 on a pain scale. Quality of pain is described as burning, squeezing. Respiratory: Reports shortness of breath at rest Onset: The symptoms/episode began/occurred gradually, the patient has mild shortness of breath. Historical: - Allergies: 17:38 Codeine; jl7 - Home Meds: 17:38 None [Active]; jl7 - PMHx: 17:38 None; jl7 - PSHx: 17:38 right shoulder with screws; ; jl7 - Immunization history:: Adult Immunizations not up to date. - Social history:: Smoking status: Patient reports the use of cigarette tobacco products, smokes one-half pack cigarettes per day. Screenin:30 Abuse screen: Denies threats or abuse. Denies injuries from another. Nutritional zb screening: No deficits noted. Tuberculosis screening: No symptoms or risk factors identified. Fall Risk None identified. Assessment: 18:00 General: Appears in no apparent distress. comfortable, Behavior is calm, cooperative, zb appropriate for age, Reports fatigue for >3 days. Pain: Complains of pain in chest and mid-sternal area Pain does not radiate. Pain currently is 6 out of 10 on a pain scale. Quality of pain is described as burning, heavy, pressure, Pain began 04/29/2018. Neuro: Level of Consciousness is awake, alert, obeys commands, Oriented to person, place, time, situation. Cardiovascular: Heart tones S1 S2 present Capillary refill < 3 seconds in bilateral fingers Patient's skin is warm and dry. Pulses are all present. Rhythm is sinus tachycardia Chest pain is described as mild, quality is burning, pressure, is located in epigastric area began 04/29/2020 episodes are continuous Parent/caregiver reports patient has had shortness of breath. Respiratory: Airway is patent Respiratory effort is even, unlabored, shallow, Respiratory pattern is regular, Breath sounds with crackles Breath sounds are diminished. GI: Abdomen is round non-distended. : No signs and/or symptoms were reported regarding the genitourinary system. EENT: No signs and/or symptoms were reported regarding the EENT system. Derm: Skin is intact, is healthy with good turgor, Skin is dry, Skin is normal. Musculoskeletal: Circulation, motion, and sensation intact. Capillary refill < 3 seconds, in bilateral fingers. Range of motion: intact in all extremities. 18:45 Reassessment: Patient appears in no apparent distress at this time. Patient and/or zb family updated on plan of care and expected duration. Pain level reassessed. Patient is alert, oriented x 3, equal unlabored respirations, skin warm/dry/pink. pt resting comfortably in bed. 20:46 Reassessment: Patient appears in no apparent distress at this time. Patient is alert, ca1 oriented x 3, equal unlabored respirations, skin warm/dry/pink. Patient states feeling better. Vital Signs: 17:27 BP 149 / 86; Pulse 110; Resp 19; Temp 98.3; Pulse Ox 97% ; Pain 6/10; jl7 20:46 BP 137 / 77; Pulse 91; Resp 18 S; Pulse Ox 95% on R/A; ca1 ED Course: 17:17 Patient arrived in ED. ag5 17:17 David Ji DO is Private Physician. ag5 17:37 Triage completed. jl7 17:38 Arm band placed on right wrist. jl7 17:45 Jamil Marin PA is PHCP. [facility] 17:45 Liam Rosen MD is Attending Physician. [facility] 17:47 Ranjana Finch RN is Primary Nurse. zb 18:20 Elpidio Jacobson MD is Attending Physician. [facility] 18:30 Patient has correct armband on for positive identification. Bed in low position. Side zb rails up X 1. collections associate on. Pulse ox on. NIBP on. Door closed. Noise minimized. 18:30 Inserted saline lock: 20 gauge in right antecubital area, using aseptic technique. zb 18:44 XRAY Chest (1 view) In Process Unspecified. EDMS 20:33 David Ji DO is Referral Physician. [facility] 20:47 No provider procedures requiring assistance completed. IV discontinued, intact, ca1 bleeding controlled, No redness/swelling at site. Pressure dressing applied. Administered Medications: 19:58 Drug: Decadron - Dexamethasone 10 mg Route: IVP; Site: right antecubital; ll2 Outcome: 20:34 Discharge ordered by . [facility] 20:47 Discharged to home ambulatory. ca1 20:47 Condition: stable 20:47 Discharge instructions given to patient, Instructed on discharge instructions, follow up and referral plans. medication usage, Demonstrated understanding of instructions, follow-up care, medications, Prescriptions given X 1. 20:47 Patient left the ED. ca1 Signatures: Dispatcher [employer] EDMS Elpidio Jacobson MD MD cha Mickail, Joel, PA PA jmm Leal, Jahala RN RN jl7 Adrienne Glass RN RN ca1 Cleo Marcum 5 Debora De La Rosa RN RN ll2 Ranjana Finch RN RN zb
[2020-05-06 14:15] VITALS: TEMP 98.3
[2020-05-06 14:16] VITALS: BP 137/77; O2SAT 95
--- NOTE | 2020-05-07 14:02 | EKG ---
Test Date: 2020-05-05 Test Time: 17:33:15 [employer]eller: DESTINY MEASUREMENT RESULTS: Intervals: Rate: 89 MT: 142 QRSD: 76 QT: 346 QTc: 420 [place]: P: 61 MT: 142 QRS: 1 T: 56 INTERPRETIVE STATEMENTS: Normal sinus rhythm Normal ECG Compared to ECG 05/26/2018 11:14:09 No significant changes Electronically Signed On 05-07-20 13:58:56 [employer] [employer] by Vahid Carter
== END 2020-05-05 20:47 | disposition home or self-care (01) ==
LOC: ER 17:14
DX: J20.9 Acute bronchitis, unspecified (principal); F17.210 Nicotine dependence, cigarettes, uncomplicated; Z88.5 Allergy status to narcotic agent
CPT/HCPCS: 93005; 85025; 80048; 36415; 83735; 85610; 85379; 80076; 84484; 83880; 71045; 96374; 99284; J1100

== ENCOUNTER → 2023-07-30 | Emergency (ER) | payer BC, OTHER, SELFPAY ==
[~2023-07-30] MED LIST: CYCLOBENZAPRINE 10 MG TAB ONE; HYDROCODONE/APAP 7.5/325 MG TAB ONE; KETOROLAC 30 MG/ML INJ ONE
--- OUTSIDE RECORDS SUMMARY | 2023-07-30 00:31 | XMS REPORT | Continuity of Care Document ---
Author Name Unknown Address [address] [facility] [address] [place] [address] [facility] th[facility] Address [address] [facility]. [address] [place] [address] Care Team Providers Care Electrician Name Role Phone David Ji Primary Care Physician [phone] David Ji Attending Clinician Unavailable ELIZABETH NEAL Attending Clinician Unavailable Elizabeth Neal MD Attending Clinician [phone] AVTAR SATNORO Attending Clinician Unavailable Avtar Truong Attending Clinician [phone] Tequila Giles Attending Clinician [phone] Agustín Malave Attending Clinician [phone] Della Brown MD Attending Clinician [phone] AVTAR SANTORO Admitting Clinician Unavailable Payers Payer Name Policy Type Policy Number Effective Date Expirati on Date Source [employer] [id number] 2023 00:00:00 [facility] - OUT OF STATE [id number] 2020 00:00:00 [place] [id number] [facility] Cigna Local Access Plus C1 [id number] [facility] Problems Condition Name Condition Details Condition Category Status Onset Date Resolution Date Last Treatment Date Treating Clinician Comments Source No known active problems No known active problems Disease 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, angina presence unspecifie d Problem [facility] [id number] Pulmonary emphysema, unspecifie d emphysema type Problem [facility] [id number] GERD without esophagiti s Problem [facility] [id number] Primary insomnia Problem [facility] [id number] Atheroscle rotic vascular disease Problem [facility] [id number] Mixed hyperlipid emia Problem [facility] Abnormal mammogram Abnormal mammogram Problem [facility] [id number] Osteoporos is, unspecifie d osteoporos is type, unspecifie d pathologic al fracture presence Problem [facility] [id number] Hx of anaphylaxi s Problem [facility] [id number] Skin pruritus Problem [facility] [id number] Urticaria pigmentosa , solitary cutaneous nodule Problem [facility] [id number] Allergic reaction, subsequent encounter Problem [facility] Allergies, Adverse Reactions, Alerts Allergy Name Allergy Type Status Severity Reaction(s) Onset Date Inactive Date Treating Clinician Comments Source CODEINE DRUG INGREDI Active N/V 09-01 00:00: [address] [facility] Codeine Codeine Active Unknown [facility] NO KNOWN ALLERGIE S Drug Class Active [facility] Social History Social Habit Start Date Stop Date Quantity Comments Source Sexual orientation U [facility] Exposure to SARS-CoV-2 (event) Yes [facility] History of Tobacco Use Current Smoker [facility] Sex Assigned At [facility] Smoking Status Start Date Stop Date Source Current Smoker 2021-05-18 00:00:00 [facility] Tobacco smoking consumption unknown [facility] Medications Ordered Medication Name Filled Medication Name Start Date Stop Date Current Medication? Ordering Clinician Indication Dosage Frequency Signature (SIG) Comments Components Source cephALEXin (KEFLEX) 500 mg capsule 2022-05 0 00:00: 00 Yes [id number] 500mg Take 1 capsule by mouth in the morning and 1 capsule at noon and 1 capsule in the evening. [facility] phenazopyri dine 200 mg tablet 2022-05 0 00:00: 00 Yes [id number] 200mg Take 1 tablet by mouth in the morning and 1 tablet at noon and 1 tablet in the evening. [facility] albuterol 90 mcg/actuati on inhaler 05-29 00:00: 00 Yes [id number] 2{puff} Inhale 2 Puffs every 4 (four) hours as needed for Wheezing or Shortness of Breath. [facility] benzonatate 100 mg capsule 05-29 00:00: 00 Yes [id number] 100mg Take 1 capsule by mouth 3 (three) times daily as needed for Cough. [facility] albuterol 90 mcg/actuati on inhaler 05-29 00:00: 00 Yes [id number] 2{puff} Inhale 2 Puffs every 4 (four) hours as needed for Wheezing or Shortness of Breath. [facility] benzonatate 100 mg capsule 05-29 00:00: 00 Yes [id number] 100mg Take 1 capsule by mouth 3 (three) times daily as needed for Cough. [facility] predniSONE 20 MG predniSONE 20 MG 2020-05 00:00: 00 05-23 00:00 :00 No QD predniSONE 20 MG Doxepin HCl 6 MG Doxepin HCl 6 MG 2020-05 0-08 00:00: 00 No 1{table t_at_be dtime} QD Doxepin HCl 6 MG traZODone HCl 50 MG traZODone HCl 50 MG 2020-05 0-05 00:00: 00 No QD traZODone HCl 50 MG Chantix 1 MG Chantix 1 MG 2020-05 0-05 00:00: 00 06-20 00:00 :00 No BID Chantix 1 MG Chantix 1 MG Chantix 1 MG 2020-05 0-05 00:00: 00 06-20 00:00 :00 No BID Chantix 1 MG Gabapentin 300 MG Gabapentin 300 MG 7-20 00:00: 00 No QD Gabapentin 300 MG diphenhydrA MINE (BENADRYL) injection 25 mg 11-10 19:45: 00 11-10 18:49 :00 No 25mg 25 mg, Slow IV Push, ONCE, 1 dose, Kayla 11/10/20 at 1445, STAT [facility] famotidine (PEPCID (PF)) injection 20 mg 11-10 19:45: 00 11-10 18:49 :00 No 20mg 20 mg, Slow IV Push, ONCE, 1 dose, Kayla 11/10/20 at 1445, [facility] methylpredn isolone sod succ (SOLU-MEDRO L) injection 125 mg 11-10 19:45: 00 11-10 18:50 :00 No 125mg 125 mg, IV Piggyback, ONCE, 1 dose, Kayla 11/10/20 at 1445, STAT [facility] NaCl 0.9% (NS) bolus infusion 1,000 mL 11-10 18:45: 00 11-10 19:30 :00 No 1000mL at 999 mL/hr, 1,000 mL, IV Infusion, ONCE, 1 dose, Kayla 11/10/20 at 1345, [facility] famotidine (PEPCID) 20 mg tablet 11-10 00:00: 00 11-16 04:59 :00 No [id number] 20mg Take 1 tablet by mouth 2 (two) times daily for [address] [facility] Famotidine 20 MG Famotidine 20 MG 2021-0 6-18 00:00: 00 No 1{table t_at_be dtime} QD Famotidine 20 MG Famotidine 20 MG Famotidine 20 MG 1-0 18 00:00: 00 No 1{table t_at_be dtime} QD Famotidine 20 MG Famotidine 20 MG Famotidine 20 MG 1-0 18 00:00: 00 No 1{table t_at_be dtime} QD Famotidine 20 MG [facility] Famotidine 20 MG Famotidine 20 MG 2020-0 18 00:00: 00 No 1{table t_at_be dtime} QD Famotidine 20 MG Famotidine 20 MG Famotidine 20 MG 2020-0 18 00:00: 00 No 1{table t_at_be dtime} QD Famotidine 20 MG Famotidine 20 MG Famotidine 20 MG 2020-0 18 00:00: 00 No 1{table t_at_be dtime} QD Famotidine 20 MG Famotidine 20 MG Famotidine 20 MG 2020-0 18 00:00: 00 No 1{table t_at_be dtime} QD Famotidine 20 MG Famotidine 20 MG Famotidine 20 MG 2020-0 18 00:00: 00 No 1{table t_at_be dtime} QD Famotidine 20 MG Famotidine 20 MG Famotidine 20 MG 2020-0 18 00:00: 00 No 1{table t_at_be dtime} QD Famotidine 20 MG Famotidine 20 MG 2020-0 18 00:00: 00 No 1{table t_at_be dtime} QD Famotidine 20 MG Famotidine 20 MG 2020-0 18 00:00: 00 No 1{table t_at_be dtime} QD Famotidine 20 MG Famotidine 20 MG Famotidine 20 MG 1-0 18 00:00: 00 No 1{table t_at_be dtime} QD Famotidine 20 MG Famotidine 20 MG Famotidine 20 MG 1-0 18 00:00: 00 No 1{table t_at_be dtime} QD Famotidine 20 MG Famotidine 20 MG Famotidine 20 MG 11-04 00:00: 00 No 1{table t_at_be dtime} QD Famotidine 20 MG Famotidine 20 MG Famotidine 20 MG 11-04 00:00: 00 No 1{table t_at_be dtime} QD Famotidine 20 MG dexamethaso ne (DECADRON PHOSPHATE) injection 10 mg 11-03 18:15: 00 11-03 17:08 :00 No 10mg 10 mg, IV Push, ONCE, 1 dose, Kayla 11/03/20 at 1315, STAT [facility] famotidine (PEPCID (PF)) injection 20 mg 11-03 14:30: 00 11-03 13:20 :00 No 20mg 20 mg, Slow IV Push, ONCE, 1 dose, Kayla 11/03/20 at 0930, [facility] NaCl 0.9% (NS) bolus infusion 1,000 mL 11-03 14:15: 00 11-03 17:00 :00 No 1000mL at 999 mL/hr, 1,000 mL, IV Infusion, ONCE, 1 dose, Kayla 11/03/20 at 0915, STAT [facility] diphenhydrA MINE (BENADRYL) injection 25 mg 11-03 14:15: 00 11-03 13:17 :00 No 25mg 25 mg, Slow IV Push, ONCE, 1 dose, Kayla 11/03/20 at 0915, STAT [facility] methylpredn isolone sod succ (SOLU-MEDRO L) injection 125 mg 11-03 14:15: 00 11-03 13:19 :00 No 125mg 125 mg, Slow IV Push, ONCE NOW, 1 dose, Kayla 11/03[facility]20 [facility] 0915[facility]ephed [facility]ine (CLARITIN-D 12 HOUR ORAL) 11-03 13:09: 36 Yes 1{tbl} Take 1 tablet by mouth daily. [facility] loratadine/ pseudoephed rine (CLARITIN-D 12 HOUR ORAL) 11-03 13:09: 36 Yes 1{tbl} Take 1 tablet by mouth daily. [facility] loratadine/ pseudoephed rine (CLARITIN-D 12 HOUR ORAL) 11-03 08:09: 36 Yes 1{tbl} Take 1 tablet by mouth daily. [facility] loratadine/ pseudoephed rine (CLARITIN-D 12 HOUR ORAL) 11-03 08:09: 36 Yes 1{tbl} Take 1 tablet by mouth daily. [facility] loratadine 10 mg tablet 11-03 00:00: 00 Yes [id number] 10mg Take 1 tablet by mouth daily. [facility] loratadine 10 mg tablet 11-03 00:00: 00 Yes [id number] 10mg Take 1 tablet by mouth daily. [facility] loratadine 10 mg tablet 11-03 00:00: 00 Yes [id number] 10mg Take 1 tablet by mouth daily. [facility] loratadine 10 mg tablet 11-03 00:00: 00 Yes [id number] 10mg Take 1 tablet by mouth daily. [facility] predniSONE 20 mg tablet 11-03 00:00: 00 11-09 04:59 :00 No [id number] 60mg Take 3 tablets by mouth every morning for [address] [facility] EPINEPHrine (EPIPEN) 0.3 mg/0.3 mL injection 11-03 00:00: 00 11-04 04:59 :00 No [id number] .3mg 0.3 mL by Intramuscu lar route once now for [address] [facility] methylpredn isolone sod succ (SOLU-MEDRO L) injection 125 mg 10-27 16:45: 00 10-27 15:42 :00 No 125mg 125 mg, Intramuscu lar, ONCE, 1 dose, [facility] 10/27/20 at 1145, STAT [facility] methylPREDN ISolone (MEDROL, GRIFFIN,) 4 mg tablets 10-27 00:00: 00 Yes [id number] Take by mouth SEE-INSTRU CTIONS. follow package directions [facility] methylPREDN ISolone (MEDROL, GRIFFIN,) 4 mg tablets 10-27 00:00: 00 11-03 00:00 :00 No [id number] Take by mouth SEE-INSTRU CTIONS. follow package directions [facility] ipratropium -albuteroL (DUONEB) 0.5 mg-3 mg(2.5 mg base)/3 mL nebulizer solution 3 mL 09-02 13:00: 00 Yes 3mL 3 mL, Inhalation , QID, First dose on Sat09/02/20 at 0800, Until Discontinu ed, Routine [facility] levoFLOXaci n (LEVAQUIN) tablet 750 mg 09-02 05:45: 00 09-02 04:57 :00 No 750mg 750 mg, Oral, ONCE NOW, 1 dose, Sat09/02/20 at 0045, ROSETTA
Re ason for Anti-Infec tive: Documented Infection< br>Documen jose daniel Infection Site: Urine
D uration of Therapy: Other (see Comments) [facility] KCL (KLOR-CON M20) tablet 40 mEq 09-02 03:15: 00 09-02 02:33 :00 No 40meq 40 mEq, Oral, ONCE, 1 dose, Sat09/01/20 at 2215, Routine [facility] NaCl 0.9% (NS) injection 5 mL 09-02 00:53: 59 Yes 5mL 5 mL, Slow IV Push, PRN - SEE INSTRUCTIO NS, Starting Sat09/01/20 at 1953, Until Discontinu ed, [address] [facility] albuterol 90 mcg/actuati on inhaler 09-01 00:00: 00 Yes [id number] 2{puff} Inhale 2 Puffs every 4 (four) hours as needed for Wheezing, Shortness of Breath, Bronchospa sm or Chest tightness. [facility] albuterol 90 mcg/actuati on inhaler 09-01 00:00: 00 Yes [id number] 2{puff} Inhale 2 Puffs every 4 (four) hours as needed for Wheezing, Shortness of Breath, Bronchospa sm or Chest tightness. [facility] albuterol 90 mcg/actuati on inhaler 09-01 00:00: 00 Yes [id number] 2{puff} Inhale 2 Puffs every 4 (four) hours as needed for Wheezing, Shortness of Breath, Bronchospa sm or Chest tightness. [facility] albuterol 90 mcg/actuati on inhaler 09-01 00:00: 00 Yes [id number] 2{puff} Inhale 2 Puffs every 4 (four) hours as needed for Wheezing, Shortness of Breath, Bronchospa sm or Chest tightness. [facility] benzonatate 200 mg capsule 09-01 00:00: 00 Yes [id number] 200mg Take 1 capsule by mouth 3 (three) times daily as needed for Cough. [facility] levoFLOXaci n (LEVAQUIN) 500 mg tablet 09-01 00:00: 00 Yes [id number] 500mg Take 1 tablet by mouth every 24 (twenty-fo ur) hours. [facility] albuterol 90 mcg/actuati on inhaler 09-01 00:00: 00 Yes [id number] 2{puff} Inhale 2 Puffs every 4 (four) hours as needed for Wheezing, Shortness of Breath, Bronchospa sm or Chest tightness. [facility] benzonatate 200 mg capsule 09-01 00:00: 00 Yes [id number] 200mg Take 1 capsule by mouth 3 (three) times daily as needed for Cough. [facility] levoFLOXaci n (LEVAQUIN) 500 mg tablet 09-01 00:00: 00 Yes [id number] 500mg Take 1 tablet by mouth every 24 (twenty-fo ur) hours. [facility] albuterol 90 mcg/actuati on inhaler 09-01 00:00: 00 Yes [id number] 2{puff} Inhale 2 Puffs every 4 (four) hours as needed for Wheezing, Shortness of Breath, Bronchospa sm or Chest tightness. [facility] benzonatate 200 mg capsule 09-01 00:00: 00 11-03 00:00 :00 No [id number] 200mg Take 1 capsule by mouth 3 (three) times daily as needed for Cough. [facility] levoFLOXaci n (LEVAQUIN) 500 mg tablet 09-01 00:00: 00 11-03 00:00 :00 No [id number] 500mg Take 1 tablet by mouth every 24 (twenty-fo ur) hours. [facility] KCL 10 mEq tablet 09-01 00:00: 00 09-05 04:59 :00 No [id number] 20meq Take 2 tablets by mouth daily for [address] [facility] Prolia Prolia 0 - 00:00: 00 No 60mg [facility] Prolia Prolia 0 605 00:00: 00 No 60mg [facility] Prolia 60 MG/ML Prolia 60 MG/ML 2-14 00:00: 00 No 1{ml} Prolia 60 MG/ML Prolia 60 MG/ML Prolia 60 MG/ML 2-14 00:00: 00 No 1{ml} Prolia 60 MG/ML Prolia 60 MG/ML Prolia 60 MG/ML 2-14 00:00: 00 No 1{ml} Prolia 60 MG/ML [facility] Prolia 60 MG/ML Prolia 60 MG/ML 2-14 00:00: 00 No 1{ml} Prolia 60 MG/ML Prolia 60 MG/ML Prolia 60 MG/ML 2-14 00:00: 00 No 1{ml} Prolia 60 MG/ML Prolia 60 MG/ML Prolia 60 MG/ML 2-14 00:00: 00 No 1{ml} Prolia 60 MG/ML Prolia 60 MG/ML Prolia 60 MG/ML 2019-0 2-14 00:00: 00 No 1{ml} Prolia 60 MG/ML Prolia 60 MG/ML Prolia 60 MG/ML 2019-0 2-14 00:00: 00 No 1{ml} Prolia 60 MG/ML Prolia 60 MG/ML Prolia 60 MG/ML 2019-0 2-14 00:00: 00 No 1{ml} Prolia 60 MG/ML Prolia 60 MG/ML 2019-0 2-14 00:00: 00 No 1{ml} Prolia 60 MG/ML Prolia 60 MG/ML 2019-0 2-14 00:00: 00 No 1{ml} Prolia 60 MG/ML Prolia 60 MG/ML Prolia 60 MG/ML 2019-0 2-14 00:00: 00 No 1{ml} Prolia 60 MG/ML Prolia 60 MG/ML Prolia 60 MG/ML 2019-0 2-14 00:00: 00 No 1{ml} Prolia 60 MG/ML Prolia 60 MG/ML Prolia 60 MG/ML 2019-0 2-14 00:00: 00 No 1{ml} Prolia 60 MG/ML Prolia 60 MG/ML Prolia 60 MG/ML 2019-0 2-14 00:00: 00 No 1{ml} Prolia 60 MG/ML Prolia 60 MG/ML Prolia 60 MG/ML 2019-0 2-14 00:00: 00 No 1{ml} Prolia 60 MG/ML Prolia Prolia 2019-0 2-14 00:00: 00 12-29 00:00 :00 No David Ji 1 ml [facility] Aspir-Low Aspir-Low Yes David Ji 1 tablet [facility] Vitamin B12 Vitamin B12 Yes David Ji not defined [facility] ProAir HFA ProAir HFA Yes David Ji 2 puffs as needed [facility] Wellbutrin SR Wellbutrin SR Yes David Ji 1 tab [facility] Vitamin D3 Vitamin D3 Yes David Ji not defined [facility] Breo Ellipta 200-25 MCG/INH Breo Ellipta 200-25 MCG/INH No 1{puff} QD Breo Ellipta 200-25 MCG/INH ProAir HFA 108 (90 Base) MCG/ACT ProAir HFA 108 (90 Base) MCG/ACT No 2{puffs _as_nee ded} QID ProAir HFA 108 (90 Base) MCG/ACT Vitamin D3 Vitamin D3 No Vitamin D3 traZODone HCl 100 MG traZODone HCl 100 MG No 1{table t_at_be dtime} QD traZODone HCl 100 MG Aspir-Low 81 MG Aspir-Low 81 MG No 1{table t} QD Aspir-Low 81 MG EpiPen EpiPen No EpiPen Vitamin B12 Vitamin B12 No Vi tamin B12 Xyzal Xyzal No Xyzal ProAir HFA 108 (90 Base) MCG/ACT ProAir HFA 108 (90 Base) MCG/ACT No 2{puffs _as_nee ded} QID ProAir HFA 108 (90 Base) MCG/ACT predniSONE 20 MG predniSONE 20 MG No 3{table t} QD predniSONE 20 MG Vitamin D3 Vitamin D3 No Vitamin D3 Aspir-Low 81 MG Aspir-Low 81 MG No 1{table t} QD Aspir-Low 81 MG Trelegy Ellipta 100-62.5-25 MCG/INH Trelegy Ellipta 100-62.5-25 MCG/INH No Trelegy Ellipta 100-62.5-2 5 MCG/INH Breo Ellipta 200-25 MCG/INH Breo Ellipta 200-25 MCG/INH No 1{puff} QD Breo Ellipta 200-25 MCG/INH EpiPen EpiPen No EpiPen Pepcid Pepcid No Pepcid ZyrTEC Allergy ZyrTEC Allergy No ZyrTEC Allergy Vitamin B12 Vitamin B12 No Vi tamin B12 Loratadine 10 MG Loratadine 10 MG No 1{table t} QD Loratadine 10 MG Pepcid Pepcid No Pepcid Comm on [facility] Trelegy Ellipta 100-62.5-25 MCG/INH Trelegy Ellipta 100-62.5-25 MCG/INH No Trelegy Ellipta 100-62.5-2 5 MCG/INH [facility] ProAir HFA 108 (90 Base) MCG/ACT ProAir HFA 108 (90 Base) MCG/ACT No 2{puffs _as_nee ded} QID ProAir HFA 108 (90 Base) MCG/ACT [facility] EpiPen EpiPen No EpiPen Comm on [facility] Gabapentin 300 MG Gabapentin 300 MG No 1{capsu le} BID Gabapentin 300 MG [facility] predniSONE 20 MG predniSONE 20 MG No 3{table t} QD predniSONE 20 MG [facility] Loratadine 10 MG Loratadine 10 MG No 1{table t} QD Loratadine 10 MG [facility] Vitamin B12 Vitamin B12 No Vi tamin B12 [facility] Breo Ellipta 200-25 MCG/INH Breo Ellipta 200-25 MCG/INH No 1{puff} QD Breo Ellipta 200-25 MCG/INH [facility] ZyrTEC Allergy ZyrTEC Allergy No ZyrTEC Allergy [facility] Aspir-Low 81 MG Aspir-Low 81 MG No 1{table t} QD Aspir-Low 81 MG [facility] Xyzal Xyzal No Xyzal [facility] Vitamin D3 Vitamin D3 No Vitamin D3 [facility] Pepcid Pepcid No Pepcid Trelegy Ellipta 100-62.5-25 MCG/INH Trelegy Ellipta 100-62.5-25 MCG/INH No Trelegy Ellipta 100-62.5-2 5 MCG/INH ProAir HFA 108 (90 Base) MCG/ACT ProAir HFA 108 (90 Base) MCG/ACT No 2{puffs _as_nee ded} QID ProAir HFA 108 (90 Base) MCG/ACT EpiPen EpiPen No EpiPen Gabapentin 300 MG Gabapentin 300 MG No 1{capsu le} BID Gabapentin 300 MG predniSONE 20 MG predniSONE 20 MG No 3{table t} QD predniSONE 20 MG Loratadine 10 MG Loratadine 10 MG No 1{table t} QD Loratadine 10 MG Vitamin B12 Vitamin B12 No Vi tamin B12 Breo Ellipta 200-25 MCG/INH Breo Ellipta 200-25 MCG/INH No 1{puff} QD Breo Ellipta 200-25 MCG/INH ZyrTEC Allergy ZyrTEC Allergy No ZyrTEC Allergy Aspir-Low 81 MG Aspir-Low 81 MG No 1{table t} QD Aspir-Low 81 MG Xyzal Xyzal No Xyzal Vitamin D3 Vitamin D3 No Vitamin D3 Pepcid Pepcid No Pepcid Trelegy Ellipta 100-62.5-25 MCG/INH Trelegy Ellipta 100-62.5-25 MCG/INH No Trelegy Ellipta 100-62.5-2 5 MCG/INH ProAir HFA 108 (90 Base) MCG/ACT ProAir HFA 108 (90 Base) MCG/ACT No 2{puffs _as_nee ded} QID ProAir HFA 108 (90 Base) MCG/ACT EpiPen EpiPen No EpiPen Gabapentin 300 MG Gabapentin 300 MG No 1{capsu le} BID Gabapentin 300 MG predniSONE 20 MG predniSONE 20 MG No 3{table t} QD predniSONE 20 MG Loratadine 10 MG Loratadine 10 MG No 1{table t} QD Loratadine 10 MG Vitamin B12 Vitamin B12 No Vi tamin B12 Breo Ellipta 200-25 MCG/INH Breo Ellipta 200-25 MCG/INH No 1{puff} QD Breo Ellipta 200-25 MCG/INH ZyrTEC Allergy ZyrTEC Allergy No ZyrTEC Allergy Aspir-Low 81 MG Aspir-Low 81 MG No 1{table t} QD Aspir-Low 81 MG Xyzal Xyzal No Xyzal Vitamin D3 Vitamin D3 No Vitamin D3 Gabapentin 300 MG Gabapentin 300 MG No 1{capsu le} BID Gabapentin 300 MG predniSONE 20 MG predniSONE 20 MG No 3{table t} QD predniSONE 20 MG Pepcid Pepcid No Pepcid Vitamin D3 Vitamin D3 No Vitamin D3 Trelegy Ellipta 100-62.5-25 MCG/INH Trelegy Ellipta 100-62.5-25 MCG/INH No Trelegy Ellipta 100-62.5-2 5 MCG/INH Loratadine 10 MG Loratadine 10 MG No 1{table t} QD Loratadine 10 MG EpiPen EpiPen No EpiPen Vitamin B12 Vitamin B12 No Vi tamin B12 Breo Ellipta 200-25 MCG/INH Breo Ellipta 200-25 MCG/INH No 1{puff} QD Breo Ellipta 200-25 MCG/INH ZyrTEC Allergy ZyrTEC Allergy No ZyrTEC Allergy Aspir-Low 81 MG Aspir-Low 81 MG No 1{table t} QD Aspir-Low 81 MG Xyzal Xyzal No Xyzal ProAir HFA 108 (90 Base) MCG/ACT ProAir HFA 108 (90 Base) MCG/ACT No 2{puffs _as_nee ded} QID ProAir HFA 108 (90 Base) MCG/ACT Gabapentin 300 MG Gabapentin 300 MG No 1{capsu le} BID Gabapentin 300 MG Pepcid Pepcid No Pepcid Vitamin B12 Vitamin B12 No Vi tamin B12 Breo Ellipta 200-25 MCG/INH Breo Ellipta 200-25 MCG/INH No 1{puff} QD Breo Ellipta 200-25 MCG/INH ZyrTEC Allergy ZyrTEC Allergy No ZyrTEC Allergy Xyzal Xyzal No Xyzal Vitamin D3 Vitamin D3 No Vitamin D3 Aspir-Low 81 MG Aspir-Low 81 MG No 1{table t} QD Aspir-Low 81 MG Medrol 4 MG Medrol 4 MG No Me drol 4 MG ProAir HFA 108 (90 Base) MCG/ACT ProAir HFA 108 (90 Base) MCG/ACT No 2{puffs _as_nee ded} QID ProAir HFA 108 (90 Base) MCG/ACT Loratadine 10 MG Loratadine 10 MG No 1{table t} QD Loratadine 10 MG predniSONE 20 MG predniSONE 20 MG No 3{table t} QD predniSONE 20 MG EpiPen EpiPen No EpiPen Trelegy Ellipta 100-62.5-25 MCG/INH Trelegy Ellipta 100-62.5-25 MCG/INH No Trelegy Ellipta 100-62.5-2 5 MCG/INH Gabapentin 300 MG Gabapentin 300 MG No 1{capsu le} BID Gabapentin 300 MG Pepcid Pepcid No Pepcid ProAir HFA 108 (90 Base) MCG/ACT ProAir HFA 108 (90 Base) MCG/ACT No 2{puffs _as_nee ded} QID ProAir HFA 108 (90 Base) MCG/ACT Breo Ellipta 200-25 MCG/INH Breo Ellipta 200-25 MCG/INH No 1{puff} QD Breo Ellipta 200-25 MCG/INH ZyrTEC Allergy ZyrTEC Allergy No ZyrTEC Allergy Xyzal Xyzal No Xyzal Vitamin D3 Vitamin D3 No Vitamin D3 Medrol 4 MG Medrol 4 MG No Me drol 4 MG Vitamin B12 Vitamin B12 No Vi tamin B12 Loratadine 10 MG Loratadine 10 MG No 1{table t} QD Loratadine 10 MG EpiPen EpiPen No EpiPen Aspir-Low 81 MG Aspir-Low 81 MG No 1{table t} QD Aspir-Low 81 MG predniSONE 20 MG predniSONE 20 MG No 3{table t} QD predniSONE 20 MG Trelegy Ellipta 100-62.5-25 MCG/INH Trelegy Ellipta 100-62.5-25 MCG/INH No Trelegy Ellipta 100-62.5-2 5 MCG/INH Trelegy Ellipta 100-62.5-25 MCG/INH Trelegy Ellipta 100-62.5-25 MCG/INH No Gabapentin 300 MG Gabapentin 300 MG No 1{capsu le} BID Doxepin HCl 6 MG Doxepin HCl 6 MG No Medrol 4 MG Medrol 4 MG No traZODone HCl 50 MG traZODone HCl 50 MG No ZyrTEC Allergy ZyrTEC Allergy No Pepcid Pepcid No Xyzal Xyzal No Vitamin D3 Vitamin D3 No Breo Ellipta 200-25 MCG/INH Breo Ellipta 200-25 MCG/INH No 1{puff} QD Aspir-Low 81 MG Aspir-Low 81 MG No 1{table t} QD Chantix 1 MG Chantix 1 MG No BID Vitamin B12 Vitamin B12 No ProAir HFA 108 (90 Base) MCG/ACT ProAir HFA 108 (90 Base) MCG/ACT No 2{puffs _as_nee ded} QID predniSONE 20 MG predniSONE 20 MG No 3{table t} QD EpiPen EpiPen No Loratadine 10 MG Loratadine 10 MG No 1{table t} QD Trelegy Ellipta 100-62.5-25 MCG/INH Trelegy Ellipta 100-62.5-25 MCG/INH No Gabapentin 300 MG Gabapentin 300 MG No 1{capsu le} BID Doxepin HCl 6 MG Doxepin HCl 6 MG No Medrol 4 MG Medrol 4 MG No traZODone HCl 50 MG traZODone HCl 50 MG No ZyrTEC Allergy ZyrTEC Allergy No Pepcid Pepcid No Xyzal Xyzal No Vitamin D3 Vitamin D3 No Breo Ellipta 200-25 MCG/INH Breo Ellipta 200-25 MCG/INH No 1{puff} QD Aspir-Low 81 MG Aspir-Low 81 MG No 1{table t} QD Chantix 1 MG Chantix 1 MG No BID Vitamin B12 Vitamin B12 No ProAir HFA 108 (90 Base) MCG/ACT ProAir HFA 108 (90 Base) MCG/ACT No 2{puffs _as_nee ded} QID predniSONE 20 MG predniSONE 20 MG No 3{table t} QD EpiPen EpiPen No Loratadine 10 MG Loratadine 10 MG No 1{table t} QD Doxepin HCl 6 MG Doxepin HCl 6 MG No Doxepin HCl 6 MG Pepcid Pepcid No Pepcid Gabapentin 300 MG Gabapentin 300 MG No 1{capsu le} BID Gabapentin 300 MG Medrol 4 MG Medrol 4 MG No Me drol 4 MG EpiPen EpiPen No EpiPen Xyzal Xyzal No Xyzal Loratadine 10 MG Loratadine 10 MG No 1{table t} QD Loratadine 10 MG Vitamin D3 Vitamin D3 No Vitamin D3 ProAir HFA 108 (90 Base) MCG/ACT ProAir HFA 108 (90 Base) MCG/ACT No 2{puffs _as_nee ded} QID ProAir HFA 108 (90 Base) MCG/ACT Aspir-Low 81 MG Aspir-Low 81 MG No 1{table t} QD Aspir-Low 81 MG ZyrTEC Allergy ZyrTEC Allergy No ZyrTEC Allergy Trelegy Ellipta 100-62.5-25 MCG/INH Trelegy Ellipta 100-62.5-25 MCG/INH No Trelegy Ellipta 100-62.5-2 5 MCG/INH Vitamin B12 Vitamin B12 No Vi tamin B12 Breo Ellipta 200-25 MCG/INH Breo Ellipta 200-25 MCG/INH No 1{puff} QD Breo Ellipta 200-25 MCG/INH Chantix 1 MG Chantix 1 MG No BID Chantix 1 MG predniSONE 20 MG predniSONE 20 MG No 3{table t} QD predniSONE 20 MG traZODone HCl 50 MG traZODone HCl 50 MG No traZODone HCl 50 MG EpiPen EpiPen No EpiPen Doxepin HCl 6 MG Doxepin HCl 6 MG No Doxepin HCl 6 MG Loratadine 10 MG Loratadine 10 MG No 1{table t} QD Loratadine 10 MG Aspir-Low 81 MG Aspir-Low 81 MG No 1{table t} QD Aspir-Low 81 MG Gabapentin 300 MG Gabapentin 300 MG No 1{capsu le} BID Gabapentin 300 MG ZyrTEC Allergy ZyrTEC Allergy No ZyrTEC Allergy Chantix 1 MG Chantix 1 MG No BID Chantix 1 MG Xyzal Xyzal No Xyzal Vitamin D3 Vitamin D3 No Vitamin D3 Breo Ellipta 200-25 MCG/INH Breo Ellipta 200-25 MCG/INH No 1{puff} QD Breo Ellipta 200-25 MCG/INH ProAir HFA 108 (90 Base) MCG/ACT ProAir HFA 108 (90 Base) MCG/ACT No 2{puffs _as_nee ded} QID ProAir HFA 108 (90 Base) MCG/ACT traZODone HCl 50 MG traZODone HCl 50 MG No traZODone HCl 50 MG Medrol 4 MG Medrol 4 MG No Me drol 4 MG Trelegy Ellipta 100-62.5-25 MCG/INH Trelegy Ellipta 100-62.5-25 MCG/INH No Trelegy Ellipta 100-62.5-2 5 MCG/INH predniSONE 20 MG predniSONE 20 MG No 3{table t} QD predniSONE 20 MG Vitamin B12 Vitamin B12 No Vi tamin B12 Pepcid Pepcid No Pepcid EpiPen EpiPen No EpiPen Doxepin HCl 6 MG Doxepin HCl 6 MG No Doxepin HCl 6 MG Loratadine 10 MG Loratadine 10 MG No 1{table t} QD Loratadine 10 MG Aspir-Low 81 MG Aspir-Low 81 MG No 1{table t} QD Aspir-Low 81 MG Gabapentin 300 MG Gabapentin 300 MG No 1{capsu le} BID Gabapentin 300 MG ZyrTEC Allergy ZyrTEC Allergy No ZyrTEC Allergy Chantix 1 MG Chantix 1 MG No BID Chantix 1 MG Xyzal Xyzal No Xyzal Vitamin D3 Vitamin D3 No Vitamin D3 Breo Ellipta 200-25 MCG/INH Breo Ellipta 200-25 MCG/INH No 1{puff} QD Breo Ellipta 200-25 MCG/INH ProAir HFA 108 (90 Base) MCG/ACT ProAir HFA 108 (90 Base) MCG/ACT No 2{puffs _as_nee ded} QID ProAir HFA 108 (90 Base) MCG/ACT traZODone HCl 50 MG traZODone HCl 50 MG No traZODone HCl 50 MG Medrol 4 MG Medrol 4 MG No Me drol 4 MG Trelegy Ellipta 100-62.5-25 MCG/INH Trelegy Ellipta 100-62.5-25 MCG/INH No Trelegy Ellipta 100-62.5-2 5 MCG/INH predniSONE 20 MG predniSONE 20 MG No 3{table t} QD predniSONE 20 MG Vitamin B12 Vitamin B12 No Vi tamin B12 Pepcid Pepcid No Pepcid EpiPen EpiPen No EpiPen Doxepin HCl 6 MG Doxepin HCl 6 MG No Doxepin HCl 6 MG Loratadine 10 MG Loratadine 10 MG No 1{table t} QD Loratadine 10 MG Aspir-Low 81 MG Aspir-Low 81 MG No 1{table t} QD Aspir-Low 81 MG Gabapentin 300 MG Gabapentin 300 MG No 1{capsu le} BID Gabapentin 300 MG ZyrTEC Allergy ZyrTEC Allergy No ZyrTEC Allergy Chantix 1 MG Chantix 1 MG No BID Chantix 1 MG Xyzal Xyzal No Xyzal Vitamin D3 Vitamin D3 No Vitamin D3 Breo Ellipta 200-25 MCG/INH Breo Ellipta 200-25 MCG/INH No 1{puff} QD Breo Ellipta 200-25 MCG/INH ProAir HFA 108 (90 Base) MCG/ACT ProAir HFA 108 (90 Base) MCG/ACT No 2{puffs _as_nee ded} QID ProAir HFA 108 (90 Base) MCG/ACT traZODone HCl 50 MG traZODone HCl 50 MG No traZODone HCl 50 MG Medrol 4 MG Medrol 4 MG No Me drol 4 MG Trelegy Ellipta 100-62.5-25 MCG/INH Trelegy Ellipta 100-62.5-25 MCG/INH No Trelegy Ellipta 100-62.5-2 5 MCG/INH predniSONE 20 MG predniSONE 20 MG No 3{table t} QD predniSONE 20 MG Vitamin B12 Vitamin B12 No Vi tamin B12 Pepcid Pepcid No Pepcid ProAir HFA 108 (90 Base) MCG/ACT ProAir HFA 108 (90 Base) MCG/ACT No 2{puffs _as_nee ded} QID ProAir HFA 108 (90 Base) MCG/ACT Vitamin B12 Vitamin B12 No Vi tamin B12 Vitamin D3 Vitamin D3 No Vitamin D3 Breo Ellipta 200-25 MCG/INH Breo Ellipta 200-25 MCG/INH No 1{puff} QD Breo Ellipta 200-25 MCG/INH traZODone HCl 100 MG traZODone HCl 100 MG No 1{table t_at_be dtime} QD traZODone HCl 100 MG Aspir-Low 81 MG Aspir-Low 81 MG No 1{table t} QD Aspir-Low 81 MG predniSONE 20 MG predniSONE 20 MG No 3{table t} QD predniSONE 20 MG Loratadine 10 MG Loratadine 10 MG No 1{table t} QD Loratadine 10 MG Breo Ellipta 200-25 MCG/INH Breo Ellipta 200-25 MCG/INH No 1{puff} QD Breo Ellipta 200-25 MCG/INH ProAir HFA 108 (90 Base) MCG/ACT ProAir HFA 108 (90 Base) MCG/ACT No 2{puffs _as_nee ded} QID ProAir HFA 108 (90 Base) MCG/ACT Vitamin D3 Vitamin D3 No Vitamin D3 traZODone HCl 100 MG traZODone HCl 100 MG No 1{table t_at_be dtime} QD traZODone HCl 100 MG Aspir-Low 81 MG Aspir-Low 81 MG No 1{table t} QD Aspir-Low 81 MG EpiPen EpiPen No EpiPen Vitamin B12 Vitamin B12 No Vi tamin B12 predniSONE 20 MG predniSONE 20 MG No 3{table t} QD predniSONE 20 MG Loratadine 10 MG Loratadine 10 MG No 1{table t} QD Loratadine 10 MG Vital Signs Vital Name Observation Time Observation Value Comments S maury Systolic blood pressure 2023-02-24 11:29:00 150 mm[Hg] [facility] Diastolic blood pressure 2023-02-24 11:29:00 89 mm[Hg] [facility] Heart rate 2023-02-24 11:29:00 81 /min [facility] Body temperature 2023-02-24 11:29:00 36.72 Karen [facility] Respiratory rate 2023-02-24 11:29:00 20 /min [facility] Body height 2023-02-24 11:29:00 154.9 cm [facility] Body weight 2023-02-24 11:29:00 52.164 kg [facility] BMI 2023-02-24 11:29:00 21.73 kg/m2 [facility] Oxygen saturation in Arterial blood by Pulse oximetry 2023-02-24 11:29:00 99 /min [facility] Systolic blood pressure 2021-05-29 18:12:00 151 mm[Hg] [facility] Diastolic blood pressure 2021-05-29 18:12:00 75 mm[Hg] [facility] Heart rate 2021-05-29 18:12:00 81 /min [facility] Body temperature 2021-05-29 18:12:00 37.39 Karen [facility] Respiratory rate 2021-05-29 18:12:00 20 /min [facility] Body height 2021-05-29 18:12:00 152.4 cm [facility] Body weight 2021-05-29 18:12:00 61.236 kg [facility] BMI 2021-05-29 18:12:00 26.37 kg/m2 [facility] Oxygen saturation in Arterial blood by Pulse oximetry 2021-05-29 18:12:00 97 /min [facility] height 2021-05-18 11:20:00 61 [in_i] [facility] weight 2021-05-18 11:20:00 129.2 [lb_av] [facility] bmi 2021-05-18 11:20:00 24.41 kg/m2 [facility] height 2021-02-21 14:50:00 61 [in_i] [facility] weight 2021-02-21 14:50:00 129.2 [lb_av] [facility] temperature 2021-02-21 14:50:00 96.6 [degF] Com [facility] bmi 2021-02-21 14:50:00 24.41 kg/m2 [facility] oximetry 2021-02-21 14:50:00 97 % [facility] respiratory rate 2021-02-21 14:50:00 16 /min [facility] blood pressure systolic 2021-02-21 14:50:00 132 mm[Hg] Common [facility] blood pressure diastolic 2021-02-21 14:50:00 70 mm[Hg] [facility] height 2021-02-03 11:20:00 61 [in_i] [facility] weight 2021-02-03 11:20:00 132 [lb_av] [facility] temperature 2021-02-03 11:20:00 97.7 [degF] Com [facility] bmi 2021-02-03 11:20:00 24.94 kg/m2 [facility] respiratory rate 2021-02-03 11:20:00 17 /min [facility] blood pressure systolic 2021-02-03 11:20:00 138 mm[Hg] [facility] blood pressure diastolic 2021-02-03 11:20:00 64 mm[Hg] Common [facility] height 2021-01-05 11:40:00 61 [in_i] [facility] weight 2021-01-05 11:40:00 132 [lb_av] [facility] temperature 2021-01-05 11:40:00 98 [degF] [facility] bmi 2021-01-05 11:40:00 24.94 kg/m2 [facility] blood pressure systolic 2021-01-05 11:40:00 130 mm[Hg] [facility] blood pressure diastolic 2021-01-05 11:40:00 70 mm[Hg] [facility] height 2020-12-06 08:20:00 61 [in_i] [facility] weight 2020-12-06 08:20:00 131.3 [lb_av] [facility] temperature 2020-12-06 08:20:00 97.2 [degF] [facility] bmi 2020-12-06 08:20:00 24.81 kg/m2 [facility] oximetry 2020-12-06 08:20:00 100 % [facility] respiratory rate 2020-12-06 08:20:00 17 /min [facility] blood pressure systolic 2020-12-06 08:20:00 132 mm[Hg] [facility] blood pressure diastolic 2020-12-06 08:20:00 71 mm[Hg] [facility] Systolic blood pressure 2020-11-10 21:42:41 141 mm[Hg] [facility] Diastolic blood pressure 2020-11-10 21:42:41 75 mm[Hg] [facility] Heart rate 2020-11-10 21:42:41 78 /min [facility] Respiratory rate 2020-11-10 21:42:41 16 /min [facility] Oxygen saturation in Arterial blood by Pulse oximetry 2020-11-10 21:42:41 97 /min [facility] Body temperature 2020-11-10 18:58:49 37.33 Karen [facility] Body height 2020-11-10 18:18:00 152.4 cm [facility] Body weight 2020-11-10 18:18:00 57.607 kg [facility] BMI 2020-11-10 18:18:00 24.80 kg/m2 [facility] height 2020-11-04 16:00:00 61 [in_i] [facility] weight 2020-11-04 16:00:00 126.2 [lb_av] [facility] temperature 2020-11-04 16:00:00 97.2 [degF] [facility] bmi 2020-11-04 16:00:00 23.84 kg/m2 [facility] oximetry 2020-11-04 16:00:00 97 % [facility] respiratory rate 2020-11-04 16:00:00 16 /min [facility] blood pressure systolic 2020-11-04 16:00:00 137 mm[Hg] [facility] blood pressure diastolic 2020-11-04 16:00:00 68 mm[Hg] [facility] Systolic blood pressure 2020-11-03 18:00:00 124 mm[Hg] [facility] Diastolic blood pressure 2020-11-03 18:00:00 78 mm[Hg] [facility] Heart rate 2020-11-03 18:00:00 64 /min [facility] Body temperature 2020-11-03 18:00:00 36.67 Karen [facility] Respiratory rate 2020-11-03 18:00:00 17 /min [facility] Oxygen saturation in Arterial blood by Pulse oximetry 2020-11-03 18:00:00 95 /min [facility] Body weight 2020-11-03 13:07:00 57.607 kg [facility] BMI 2020-11-03 13:07:00 24.80 kg/m2 [facility] Systolic blood pressure 2020-10-27 15:26:00 133 mm[Hg] [facility] Diastolic blood pressure 2020-10-27 15:26:00 87 mm[Hg] [facility] Heart rate 2020-10-27 15:26:00 78 /min [facility] Body temperature 2020-10-27 15:26:00 36.89 Karen [facility] Respiratory rate 2020-10-27 15:26:00 18 /min [facility] Body weight 2020-10-27 15:26:00 61.236 kg [facility] BMI 2020-10-27 15:26:00 26.37 kg/m2 [facility] Oxygen saturation in Arterial blood by Pulse oximetry 2020-10-27 15:26:00 97 /min [facility] Systolic blood pressure 2020-09-02 05:00:00 123 mm[Hg] [facility] Diastolic blood pressure 2020-09-02 05:00:00 81 mm[Hg] [facility] Heart rate 2020-09-02 05:00:00 72 /min [facility] Respiratory rate 2020-09-02 05:00:00 16 /min [facility] Oxygen saturation in Arterial blood by Pulse oximetry 2020-09-02 05:00:00 96 /min [facility] Body temperature 2020-09-02 00:22:00 37.89 Karen [facility] Body height 2020-09-02 00:22:00 152.4 cm [facility] Body weight 2020-09-02 00:22:00 61.236 kg [facility] BMI 2020-09-02 00:22:00 26.37 kg/m2 [facility] Procedures Procedure Date / Time Performed Performing Clinicia n Source ASSIGNMENT OF BENEFITS 2023-02-24 12:02:49 Docto r Unassigned, [place] [facility] URINALYSIS 2023-02-24 11:35:00 Della Brown [facility] CONSENT/REFUSAL FOR DIAGNOSIS AND TREATMENT 2023-02-24 11:24:38 Doctor Unassigned, [place] [facility] XR CHEST 2 VW 2021-05-29 18:56:17 Avtar Santoro [facility] CONSENT/REFUSAL FOR DIAGNOSIS AND TREATMENT 2021-05-29 17:48:36 Doctor Unassigned, [place] [facility] HEPATIC FUNCTION PANEL (07955) (ALB,T.PRO,BILI T,BU/BC,ALT,AST,ALK PHOS) 2020-11-10 18:49:00 Tequila Godoy [facility] BASIC METABOLIC PANEL (NA, K, CL, CO2, GLUCOSE, BUN, CREATININE, CA) 2020-11-10 18:49:00 Tequila Godoy [facility] CBC WITH DIFF 2020-11-10 18:49:00 Tequila Godoy [facility] CONSENT/REFUSAL FOR DIAGNOSIS AND TREATMENT 2020-11-10 18:07:25 Doctor Unassigned, [place] [facility] COVID-19 (ID NOW RAPID TESTING) 2020-11-03 17:14:00 Elizabeth Neal [facility] NOTICE OF PRIVACY PRACTICES 2020-10-27 15:15:33 Doctor Unassigned, [place] [facility] CONSENT/REFUSAL FOR DIAGNOSIS AND TREATMENT 2020-10-27 15:14:11 Doctor Unassigned, [place] [facility] URINALYSIS 2020-09-02 02:35:00 Della Brown [facility] XR CHEST 1 VW 2020-09-02 01:13:41 Della Brown [facility] COVID-19 (ID NOW RAPID TESTING) 2020-09-02 01:09:00 Della Brown [facility] BLOOD CULTURE SCREEN 2020-09-02 01:08:00 Brandon Brown i [facility] TROPONIN I 2020-09-02 01:08:00 Della Brown [facility] HEPATIC FUNCTION PANEL (98500) (ALB,T.PRO,BILI T,BU/BC,ALT,AST,ALK PHOS) 2020-09-02 01:08:00 Della Brown [facility] BASIC METABOLIC PANEL (NA, K, CL, CO2, GLUCOSE, BUN, CREATININE, CA) 2020-09-02 01:08:00 Della Brown [facility] CBC WITH DIFF 2020-09-02 01:08:00 Della Brown [facility] NOTICE OF PRIVACY PRACTICES 2020-09-02 00:15:38 Doctor Unassigned, [place] [facility] CONSENT/REFUSAL FOR DIAGNOSIS AND TREATMENT 2020-09-02 00:14:51 Doctor Unassigned, [place] [facility] Encounters Start Date/Time End Date/Time Encounter Type Admission Type Attending Page [facility] Facility Care Department Encounter ID Source 2023-07-29 09:18:00 Outpatient Ji, [facility] [id number] [facility] 2021-06-14 14:31:51 Outpatient Ji, [facility] [id number] [facility] 2021-06-14 14:13:56 Outpatient Ji, [facility] [id number] [facility] 2021-06-14 13:59:44 Outpatient Ji, [facility] STLMLC [id number] [facility] 2021-06-14 13:40:27 Outpatient Ji, [facility] STL[facility]C [id number] [facility] 2021-06-14 13:27:54 Outpatient Ji, [facility] STLMLC [id number] [facility] 2021-06-14 13:17:02 Outpatient Ji, [facility] STL[facility]C [id number] [facility] 2021-06-14 12:05:13 Outpatient Ji, David [facility] [id number] [facility] 2021-06-14 11:54:48 Outpatient Ji, [facility] [id number] [facility] 2021-06-14 11:29:40 Outpatient Ji, [facility] [id number] [facility] 2021-06-14 11:21:00 Outpatient Ji, David [facility] [id number] [facility] 2021-06-14 11:13:19 Outpatient Ji, David [facility] [id number] [facility] 2021-06-14 11:13[facility]00 [facility] [id number] [facility] 2021-06-14 11:06:17 [facility] [id number] [facility] 2021-06-14 11:03:09 [facility] [id number] [facility] 2021-06-14 11:02:21 [facility] [id number] [facility] 2023-02-24 06:31:00 2023-02-24 07:53:00 Emergency X ORALIA NEALNELL [facility] ERT [id number] [facility] 2023-02-24 06:31:00 2023-02-24 07:53:00 Emergency Elizabeth Neal [facility] [id number] [facility] 2021-05-29 12:13:00 2021-05-29 14:38:00 Emergency X AVTAR SANTORO [facility] ERT [id number] [facility] 2021-05-29 12:13:00 2021-05-29 14:38:00 Emergency Avtar Santoro [facility] [id number] [facility] 2021-05-25 00:00:00 2021-05-25 00:00:00 (TEL) [facility] [id number] [facility] 2021-05-18 00:00:00 2021-05-18 00:00:00 OFFICE VISIT EST PT LEVEL 3 STLMLC STLMLC [id number] [facility] 2021-05-17 00:00:00 2021-05-17 00:00:00 (TEL) STLMLC STLMLC [id number] [facility] 2021-04-04 00:00:00 2021-04-04 00:00:00 (TEL) STLMLC STLMLC [id number] [facility] 2021-03-27 00:00:00 2021-03-27 00:00:00 (TEL) STLMLC STLMLC [id number] [facility] 2021-02-24 00:00:00 2021-02-24 00:00:00 (TEL) STLMLC STLMLC [id number] [facility] 2021-02-22 00:00:00 2021-02-22 00:00:00 (TEL) STLMLC STLMLC [id number] [facility] 2021-02-21 00:00:00 2021-02-21 00:00:00 OFFICE VISIT ESTAB PT LEVEL 4 STLMLC STLMLC [id number] [facility] 2021-02-03 00:00:00 2021-02-03 00:00:00 OFFICE VISIT ESTAB PT LEVEL 2 STLMLC STLMLC [id number] [facility] 2021-01-26 00:00:00 2021-01-26 00:00:00 (TEL) STLMLC STLMLC [id number] [facility] 2021-01-05 00:00:00 2021-01-05 00:00:00 OFFICE VISIT ESTAB PT LEVEL 4 STLMLC STLMLC [id number] [facility] 2020-12-06 00:00:00 2020-12-06 00:00:00 (TEL) STLMLC STLMLC [id number] [facility] 2020-12-06 00:00:00 2020-12-06 00:00:00 (WELLNESS) Wellness Visit STLMLC STLMLC [id number] [facility] 2020-11-10 13:20:00 2020-11-10 16:43:00 Emergency Tequila Godoy [facility] [id number] [facility] 2020-11-10 13:07:00 2020-11-10 13:07:00 Emergency X [facility] ERT [id number] [facility] 2020-11-04 00:00:00 2020-11-04 00:00:00 OFFICE VISIT EST PT LEVEL 3 STLMLC STLMLC [id number] [facility] 2020-11-03 08:09:00 2020-11-03 13:28:00 Emergency Kevon Elizabeth [facility] [id number] [facility] 2020-11-03 08:01:00 2020-11-03 08:01:00 Emergency X [facility] ERT [id number] [facility] 2020-11-03 00:00:00 2020-11-03 00:00:00 (TEL) STLMLC STLMLC [id number] [facility] 2020-11-03 00:00:00 2020-11-03 00:00:00 (TEL) STLMLC STLMLC [id number] [facility] 2020-10-27 10:18:00 2020-10-27 11:44:00 Emergency Agustín Bruce [facility] [id number] [facility] 2020-10-27 10:13:00 2020-10-27 10:13:00 Emergency X [facility] ERT [id number] [facility] 2020-09-01 19:27:00 2020-09-02 00:06:00 Emergency Della Brown [facility] [id number] [facility] 2020-09-01 19:17:00 2020-09-01 19:17:00 Emergency X [facility] ERT [id number] [facility] 2020-05-30 00:00:00 2020-05-30 00:00:00 Outpatient STLMLC STLMLC [id number] [facility] 2020-05-26 00:00:00 2020-05-26 00:00:00 Outpatient STLMLC STLMLC [id number] [facility] 2020-05-25 00:00:00 2020-05-25 00:00:00 Outpatient STLMLC STLMLC [id number] [facility] 2020-05-24 00:00:00 2020-05-24 00:00:00 Outpatient STLMLC STLMLC [id number] [facility] 2020-05-02 00:00:00 2020-05-02 00:00:00 Outpatient STLMLC STLMLC [id number] [facility] 2020-05-02 00:00:00 2020-05-02 00:00:00 Outpatient STLMLC STLMLC [id number] [facility] 2020-04-05 00:00:00 2020-04-05 00:00:00 Outpatient STLMLC STLMLC [id number] [facility] 2020-04-04 00:00:00 2020-04-04 00:00:00 Outpatient STLMLC STLMLC [id number] [facility] 2020-03-01 00:00:00 2020-03-01 00:00:00 Outpatient STLMLC STLMLC [id number] [facility] 2020-02-25 00:00:00 2020-02-25 00:00:00 Outpatient STLMLC STLMLC [id number] [facility] 2019-11-30 15:15:00 2019-11-30 15:15:[address] [facility] [id number] [facility] 2019-10-23 09:00:00 2019-10-23 09:00:[address] [facility] [id number] [facility] 2019-10-22 10:20:00 2019-10-22 10:20:[address] [facility] [id number] [facility] 2019-09-28 15:00:00 2019-09-28 15:00:[address] [facility] [id number] [facility] 2019-08-24 11:31:00 2019-08-24 11:31:[address] [facility] [id number] [facility] 2019-07-29 15:00:00 2019-07-29 15:00:[address] [facility] [id number] [facility] 2019-07-20 11:00:00 2019-07-20 11:00:[address] [id number] [facility] 2019-07-08 13:41:00 2019-07-08 13:41:00 [facility] [id number] [facility] 2019-07-03 14:33:00 2019-07-03 14:33:[address] [facility] [id number] [facility] 2019-06-30 11:00:00 2019-06-30 11:00:[address] [id number] [facility] 2019-06-02 08:31:00 2019-06-02 08:31:[address] [facility] [id number] [facility] 2019-05-21 17:11:00 2019-05-21 17:11:[address] [facility] [id number] [facility] 2019-05-12 08:01:00 2019-05-12 08:01:[address] [facility] [id number] [facility] 2019-04-29 08:15:00 2019-04-29 08:15:[address] [facility] [id number] [facility] 2019-04-24 08:21:00 2019-04-24 08:21:00 [facility] [id number] [facility] 2019-04-09 16:00:00 2019-04-09 16:00:00 [facility] [id number] [facility] 2019-03-17 15:00:00 2019-03-17 15:00:[address] [id number] [facility] 2019-03-10 08:02:00 2019-03-10 08:02:00 [facility] [id number] [facility] 2019-02-17 13:30:00 2019-02-17 13:30:[address] [facility] [id number] [facility] Results Test Description Test Time Test Comments Results Result Co mments Source [facility] (ALB, T.PRO, BILI T, BU/BC, ALT, AST, ALK PHOS)2020-11-10 19:29:10* Test Item Value Reference Range Interpretation Comme nts TOTAL BILI (test code = 1412503596) 0.5 mg/dL 0.1-1.1 BILI UNCON (test code = 0517589375) 0.3 mg/dL 0.1-1.1 BILI CONJ (test code = 8855734570) 0.0 mg/dL 0.0-0.3 T PROTEIN (test code = 6164197277) 6.8 g/dL 6.3-8.2 ALBUMIN (test code = 8163203949) 3.8 g/dL 3.5-5.0 ALK PHOS (test code = 8123988828) 93 U/L 34-122 ALTv (test code = 1742-6) 13 U/L 5-35 AST(SGOT) (test code = 3180615968) 21 U/L 13-40 Lab Interpretation (test cod e = 19389-8) Normal [facility] with [id number] 19:21:28* Test Item Value Reference Range Interpretation Comme nts WBC (test code = 6690-2) See_Comment H [Automated [employer] ge] The system which generated this result transmitted reference range: 4.30 - 11.10 10*3/?L. The reference range was not used to interpret this result as normal/abnormal. RBC (test code = 789-8) See_Comment [Automated [employer] Yuanfen~Flow™] The system which generated this result transmitted reference range: 3.93 - 5.25 10*6/?L. The reference range was not used to interpret this result as normal/abnormal. HGB (test code = 718-7) 12.5 g/dL 11.6-15.0 HCT (test code = 4544-3) 38.4 % 35.7-45.2 MCV (test code = 787-2) 89.5 fL 80.6-95.5 MCH (test code = 785-6) 29.1 pg 25.9-32.8 MCHC (test code = 786-4) 32.6 g/dL 31.6-35.1 RDW-SD (test code = 69723-8) 47.5 fL 39.0-49.9 RDW-CV (test code = 788-0) 14.5 % 12.0-15.5 PLT (test code = 777-3) See_Comment [Automated messa ge] The system which generated this result transmitted reference range: 166 - 358 10*3/?L. The reference range was not used to interpret this result as normal/abnormal. MPV (test code = 12437-4) 9.6 fL 9.5-12.9 NRBC/100 WBC (test code = 3656608353) See_Comment [Automated me ssage] The system which generated this result transmitted reference range: 0.0 - 10.0 /100 WBCs. The reference range was not used to interpret this result as normal/abnormal. NRBC x10^3 (test code = 2706236822) <0.01 See_Comment [Automated messa ge] The system which generated this result transmitted reference range: 10*3/?L. The reference range was not used to interpret this result as normal/abnormal. GRAN MAT (NEUT) % (test code = 770-8) 52.8 % IMM GRAN % (test code = 3780734432) 0.30 % LYMPH % (test code = 736-9) 39.2 % MONO % (test code = 5905-5) 6.5 % EOS % (test code = 713-8) 0.9 % BASO % (test code = 706-2) 0.3 % GRAN MAT x10^3(ANC) (test code = 8979736139) 6.96 10*3/uL 1.88-7.09 IMM GRAN x10^3 (test code = 1207918164) 0.04 10*3/uL 0.00-0.06 LYMPH x10^3 (test code = 731-0) 5.18 10*3/uL 1.32-3.29 H MONO x10^3 (test code = 742-7) 0.86 10*3/uL 0.33-0.92 EOS x10^3 (test code = 711-2) 0.12 10*3/uL 0.03-0.39 BASO x10^3 (test code = 704-7) 0.04 10*3/uL 0.01-0.07 Lab Interpretation (test code = 49589-1) Abnormal [facility] NOW RAPID TESTING)2020-11-03 17:46:22* Test Item Value Reference Range Interpretation Comme nts SARS-CoV-2 Rapid ID NOW (test code = 08478-8) Not Detected Not Detected SAVANNA (test code = SAVANNA) ID NOW COVID-19 As say is an isothermal nucleic acid amplification test intended for the qualitative detection of nucleic acid from SARS-CoV-2 viral RNA in nasopharyngeal (STOCKHOLDER) specimens. It is used under Emergency Use Authorization (EUA) by FDA. The limit of detection (LOD) of the assay is 125 Genome Equivalents/mL. A positive result is indicative of the presence of SARS-CoV-2 RNA. ?Clinical correlation with patient history and other diagnostic information is necessary to determine patient infection status. A negative (Not Detected) result does not preclude SARS-CoV-2 infection. In patients with clinical symptoms and other tests that are consistent with SARS-CoV-2 infection, negative results should be treated as presumptive negative and a new specimen should be tested with alternative PCR molecular test. Invalid: Please collect a new specimen for repeat patient testing if clinically indicated. Lab Interpretation (test code = 35599-5) Normal [facility]21[facility] 02:51:50* Test Item Value Reference Range Interpretation Comme nts APPEARANCE (test code = 3771005424) Hazy Clear A COLOR (test code = 9226558551) Hiwot Yellow A PH (test code = 0269211714) 4.8-8.0 SP GRAVITY (test code = 4610829337) 1.003-1.030 GLU U QUAL (test code = 0904473374) Normal Normal BLOOD (test code = 6572677761) 1+ Negative A KETONES (test code = 9263105630) Negative Negative PROTEIN (test code = 2887-8) Negative Negative UROBILIN (test code = 8454021362) Normal Normal BILIRUBIN (test code = 9654371561) Negative Negative NITRITE (test code = 2941214394) Negative Negative LEUK ION (test code = 8274887402) Negative Negative RBC/HPF (test code = 9267993677) See_Comment H [Automated [employer] Yuanfen~Flow™] The system which generated this result transmitted reference range: 0 - 3 HPF. The reference range was not used to interpret this result as normal/abnormal. WBC/HPF (test code = 9387977141) See_Comment [Automated [employer] Yuanfen~Flow™] The system which generated this result transmitted reference range: 0 - 5 HPF. The reference range was not used to interpret this result as normal/abnormal. BACTERIA (test code = 0001161326) Few Negative A MUCOUS (test code = 5859062350) Marked Negative LPF A SQ EPITH (test code = 1071701662) HPF HYAL CAST (test code = 2951529148) See_Comment [Automated messa ge] The system which generated this result transmitted reference range: <=2 LPF. The reference range was not used to interpret this result as normal/abnormal. Lab Interpretation (test code = 34379-1) Abnormal [facility] [id number] 02:47:42* Test Item Value Reference Range Interpretation Comme nts TROPONIN I (test code = 6101105157) 0.002 ng/mL See_Comment [Automated message] The system which generated this result transmitted reference range: <=0.034. The reference range was not used to interpret this result as normal/abnormal. SAVANNA (test code = SAVANNA) Equal or Less than 0.034 ng/ml---Normal ?Note: Cardiac troponin begins to rise 3-4 hours after the onset of ischemia. Repeat in 4-6 hours if the sample was drawn within 3-4 hours of the onset of the symptom and found normal. Between 0.035 and 0.120 ng/mL--- Borderline. Questionable myocardial injury or necrosis ? ?Note: Serial measurement may be necessary to confirm or exclude the diagnosis of myocardial injury or necrosis; Clinical correlation (symptoms, EKGs, imaging studies, and others) required; Repeat in 4-6 hours if clinically indicated. ? Equal or Higher than 0.121 ng/mL---Abnormal. Myocardial Injury or Necrosis Likely ? Biotin has been reported to cause a negative bias, interpret results relative to patient's use of biotin. ? Lab Interpretation (test code = 63640-3) Normal [facility] with [id number] 02:07:01* Test Item Value Reference Range Interpretation Comme nts WBC (test code = 6690-2) See_Comment H [Automated messa ge] The system which generated this result transmitted reference range: 4.30 - 11.10 10*3/?L. The reference range was not used to interpret this result as normal/abnormal. RBC (test code = 789-8) See_Comment [Automated messa ge] The system which generated this result transmitted reference range: 3.93 - 5.25 10*6/?L. The reference range was not used to interpret this result as normal/abnormal. HGB (test code = 718-7) 12.8 g/dL 11.6-15.0 HCT (test code = 4544-3) 39.1 % 35.7-45.2 MCV (test code = 787-2) 85.4 fL 80.6-95.5 MCH (test code = 785-6) 27.9 pg 25.9-32.8 MCHC (test code = 786-4) 32.7 g/dL 31.6-35.1 RDW-SD (test code = 37109-7) 41.2 fL 39.0-49.9 RDW-CV (test code = 788-0) 13.4 % 12.0-15.5 PLT (test code = 777-3) See_Comment [Automated [employer] ge] The system which generated this result transmitted reference range: 166 - 358 10*3/?L. The reference range was not used to interpret this result as normal/abnormal. MPV (test code = 19849-5) 10.3 fL 9.5-12.9 NRBC/100 WBC (test code = 1287255663) See_Comment [Automated [employer] ssage] The system which generated this result transmitted reference range: 0.0 - 10.0 /100 WBCs. The reference range was not used to interpret this result as normal/abnormal. NRBC x10^3 (test code = 5305863695) <0.01 See_Comment [Automated messa ge] The system which generated this result transmitted reference range: 10*3/?L. The reference range was not used to interpret this result as normal/abnormal. GRAN MAT (NEUT) % (test code = 770-8) 58.3 % IMM GRAN % (test code = 9252432648) 0.30 % LYMPH % (test code = 736-9) 34.1 % MONO % (test code = 5905-5) 5.2 % EOS % (test code = 713-8) 1.4 % BASO % (test code = 706-2) 0.7 % GRAN MAT x10^3(ANC) (test code = 0969646524) 9.66 10*3/uL 1.88-7.09 H IMM GRAN x10^3 (test code = 7257151566) 0.05 10*3/uL 0.00-0.06 LYMPH x10^3 (test code = 731-0) 5.66 10*3/uL 1.32-3.29 H MONO x10^3 (test code = 742-7) 0.87 10*3/uL 0.33-0.92 EOS x10^3 (test code = 711-2) 0.24 10*3/uL 0.03-0.39 BASO x10^3 (test code = 704-7) 0.12 10*3/uL 0.01-0.07 H Lab Interpretation (test code = 65920-1) Abnormal [facility] Metabilic Panel (NA, K, CL, CO2, GLUCOSE, BUN, CREATININE, CA)2020-09-02 01:46:13* Test Item Value Reference Range Interpretation Comme nts NA (test code = 7989452708) 142 mmol/L 135-145 K (test code = 9744438347) 3.1 mmol/L 3.5-5.0 L CL (test code = 6839944355) 105 mmol/L 98-108 CO2 TOTAL (test code = 2802351199) 27 mmol/L 23-31 AGAP (test code = 5281102416) 2-16 BUN (test code = 5992712537) 11 mg/dL 7-23 GLUCOSE (test code = 3734468239) 110 mg/dL 70-110 CREATININE (test code = 7628034507) 0.58 mg/dL 0.50-1.04 CALCIUM (test code = 6726842458) 8.8 mg/dL 8.6-10.6 eGFR (test code = 5671229531) mL/min/1.73m2 SAVANNA (test code = SAVANNA) Association of Glomerular Filtration Rate (GFR) and Staging of Kidney Disease* + --+ --+ ------+| GFR (mL/min/1.73 m2) ?| With Kidney Damage ?| ?Without Kidney Damage+ --------+ --------+ +| ?>90 ?| ?Stage one ?| ? Normal ?+ ---+ ---+ -------+| ?60-89 ?| ?Stage two ?| ? Decreased GFR ? + --+ --+ ------+| ?30-59 ?| ?Stage three ?| ? Stage three ? + --+ --+ ------+| ?15-29 ?| ?Stage four ? | ? Stage four ?+ ---+ ---+ -------+| ?<15 (or dialysis) ? ?| ?Stage five ? | ? Stage five ?+ ---+ ---+ -------+ *Each stage assumes the associated GFR level has been in effect for at least three months. ?Stages 1 to 5, with or without kidney disease, indicate chronic kidney disease. Notes: Determination of stages one and two (with eGFR >59mL/min/1.73 m2) requires estimation of kidney damage for at least three months as defined by structural or functional abnormalities of the kidney, manifested by either:Pathological abnormalities or Markers of kidney damage (including abnormalities in the composition of the blood or urine or abnormalities in imaging tests). Lab Interpretation (test code = 95516-0) Abnormal [facility] (ALB,T.PRO,BILI T,BU/BC,ALT,AST,ALK PHOS)2020-09-02 01:45:53* Test Item Value Reference Range Interpretation Comme nts TOTAL BILI (test code = 0932431709) 0.4 mg/dL 0.1-1.1 BILI UNCON (test code = 5735596859) 0.2 mg/dL 0.1-1.1 BILI CONJ (test code = 5997945995) 0.0 mg/dL 0.0-0.3 T PROTEIN (test code = 1363864222) 7.6 g/dL 6.3-8.2 ALBUMIN (test code = 0226154101) 4.1 g/dL 3.5-5.0 ALK PHOS (test code = 6663838693) 126 U/L 34-122 H ALTv (test code = 1742-6) 9 U/L 5-35 AST(SGOT) (test code = 0131269175) 21 U/L 13-40 Lab Interpretation (test cod e = 48170-8) Abnormal [facility] ([facility] NOW RAPID TESTING)2020-09-02 01:34:32* Test Item Value Reference Range Interpretation Comme nts SARS-CoV-2 Rapid ID NOW (test code = 35280-4) Not Detected Not Detected SAVANNA (test code = SAVANNA) ID NOW COVID-19 As say is an isothermal nucleic acid amplification test intended for the qualitative detection of nucleic acid from SARS-CoV-2 viral RNA in nasopharyngeal (STOCKHOLDER) specimens. It is used under Emergency Use Authorization (EUA) by FDA. The limit of detection (LOD) of the assay is 125 Genome Equivalents/mL. A positive result is indicative of the presence of SARS-CoV-2 RNA. ?Clinical correlation with patient history and other diagnostic information is necessary to determine patient infection status. A negative (Not Detected) result does not preclude SARS-CoV-2 infection. In patients with clinical symptoms and other tests that are consistent with SARS-CoV-2 infection, negative results should be treated as presumptive negative and a new specimen should be tested with alternative PCR molecular test. Invalid: Please collect a new specimen for repeat patient testing if clinically indicated. Lab Interpretation (test code = 48909-1) Normal [facility] 2 AntigenSARS-COV 2 Antigen"
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
[2023-07-30 02:17] VITALS: BP 143/90; TEMP 98; O2SAT 94
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
== END ==
LOC: ER 00:24
DX: M54.9 Dorsalgia, unspecified (principal); M54.2 Cervicalgia; R10.2 Pelvic and perineal pain; V49.49XA Driver injured in collision with other motor vehicles in traffic accident, initial encounter
CPT/HCPCS: 70450; 71250; 72125